=== PATIENT | female | born 1995 | race Caucasian/White ===

== ENCOUNTER 2021-02-07 15:46 | Emergency (ER) | payer BC, SELFPAY ==
--- NOTE | ~2021-02-07 | XR_ITS ---
XR ankle RT min 3V 02/07/2021 16:56 INDICATION: Right ankle pain PROCEDURE: 4 views right ankle COMPARISON: No prior studies for comparison. FINDINGS: Fracture, dislocation or subluxation is not identified. The soft tissues appear within norm al limits. No foreign bodies are identified. IMPRESSION: 1: NO ACUTE BONE OR JOINT ABNORMALITY IDENTIFIED. Reviewed, dictated and finalized at location A.
--- NOTE | ~2021-02-07 | XR_ITS ---
XR knee RT min 4V 02/07/2021 16:56 INDICATION: Right knee pain. Unable to bear weight. PROCEDURE: 4 views right knee COMPARISON: No prior studies for comparison. FINDINGS: Fracture, dislocation or subluxation is not identified. No significant joint effusion. The soft tissues appear within normal limits. No foreign bodies are identified. IMPRESSION: 1: NO ACUTE BONE OR JOINT ABNORMALITY IDENTIFIED. Reviewed, dictated and finalized at location A.
[2021-02-07 16:03] VITALS: BP 155/99; PULSE 81; RESP 20; TEMP 37.6; O2SAT 100
[2021-02-07 16:35] VITALS: BP 155/99; PULSE 81; RESP 20; TEMP 37.6; O2SAT 100
--- NOTE | 2021-02-07 16:38 | ED.LOWEXIN ---
HPI - Extremity Injury (Lower) General Chief Complaint: Extremity Injury, Lower Stated Complaint: Possible injury to right Leg and Ankle from fall Time Seen by Provider: 02/07/21 16:28 Source: patient, RN notes reviewed and old records reviewed Mode of arrival: ambulatory Limitations: no limitations History of Present Illness HPI Narrative: 26 year old female who presents to [facility] care with injury to her right knee and right ankle from fall off of porch onto concrete surface yesterday. Patient also has abrasion to her left knee, area of tissue avulsion to medial aspect of distal right foot near big toe where she states she hit her right foot on corner of porch. Patient has pain to the medial and lateral aspect of her right ankle, and dorsal region of right foot. Patient states pain also to her right knee with weight bearing with no acute edema noted. Patient has bruising to tissue of inner right thigh near knee and mid inner thigh. Patient has mild swelling to her right ankle with most pain stated to medial aspect of her ankle. MD complaint: knee injury and ankle injury Onset (ago): day(s) (1) Injury: Right: ankle and Bilateral: knee (left has abrasion, right painful) Type of Injury: other (fall) Place: other (fell off of relatives porch) Severity: moderate Severity scale (1-10): 5 Relieving factors: nothing Exacerbating factors: weight bearing and movement Context: fall Associated symptoms: able to partially bear weight Treatments prior to arrival: NSAIDS Related Data Allergies Allergy/AdvReac Type Severity Reaction Status Date / Time No Known Allergies Allergy Verified 02/07/21 16:30 Review of Systems Review of Systems: Narrative: CONSTITUTIONAL: Denies fever, chills, or sweats. EYES: Denies visual changes, redness, or discharge. ENT: Denies rhinorrhea, congestion, sore throat, or otalgia. CARDIOVASCULAR: Denies chest pain, palpitations, or edema. RESPIRATORY: Denies cough or dyspnea. GASTROINTESTINAL: Denies abdominal pain, nausea, vomiting, or diarrhea. GENITOURINARY: Denies dysuria or hematuria. SKIN: Denies rash or itching.abrasion to left knee from fall, avulsion of tissue to medial right distal foot near big toe no active bleeding MUSCULOSKELETAL: Denies back pain,positive for right medial and lateral ankle pain and right knee pain from fall, or myalgia. NEUROLOGIC: Denies headache, numbness, or weakness. PSYCHIATRIC:Positive history of anxiety or depression. All systems reviewed & are unremarkable except as noted in HPI and below PMFSH Past Medical History Medical History (Updated 02/11/21 @ 12:28 by Verna Patel NP) Anxiety and depression Fracture of metatarsal bone UTI (urinary tract infection) Surgical History Surgical History (Updated 02/11/21 @ 12:23 by Verna Patel NP) History of placement of ear tubes Previous section Family History Family History (Updated 02/11/21 @ 12:27 by Verna Patel NP) Mother Anxiety and depression Father Brain tumor History of blood clots Other Acute myocardial infarction Breast cancer Diabetes mellitus FHx: Parkinson's disease Heart disease Social History Social History (Updated 02/11/21 @ 12:24 by Verna Patel NP) Smoking status: Never smoker Alcohol intake: current Alcohol use details: rare social Substance use: never Living arrangements: with family Gender identity (if verbalized by the patient): Female Comments At time of signature, agree with nursing past medical, surgical, social and family history. There is no relevant family history pertinent to the presenting complaint Exam Narrative: Exam Narrative: GENERAL: Well-appearing, well-nourished, and in no acute distress. HEAD: Normocephalic, atraumatic.no loss of consciousness or injury to head EYES: PERRLA and EOMI. ENT: Nares clear, no rhinorrhea or epistaxis. Mucous membranes moist.TM's normal with good light reflex, throat pink with no lesions o
== END 2021-02-07 17:52 | disposition home or self-care (01) ==
PROVIDERS: Emergency Provider Registered Nurse
DX: S93.401A Sprain of unspecified ligament of right ankle, initial encounter (principal); S96.911A Strain of unspecified muscle and tendon at ankle and foot level, right foot, initial encounter; S80.11XA Contusion of right lower leg, initial encounter; W17.89XA Other fall from one level to another, initial encounter
CPT/HCPCS: 73564; 73610; 99214; G0463

== ENCOUNTER 2022-10-06 08:08 | Outpatient (CLI) | payer OTHER, SELFPAY ==
[2022-10-06 09:04] LABS: Hematocrit 35.8 % (37.0-47.0); Hemoglobin 10.5 g/dL (12.0-15.0)
== END 2022-10-06 08:09 | disposition home or self-care (01) ==
PROVIDERS: Visit Provider Obstetrics & Gynecology
DX: N92.6 Irregular menstruation, unspecified (principal); Z01.818 Encounter for other preprocedural examination
CPT/HCPCS: 36415; 85014; 85018

== ENCOUNTER 2022-10-12 00:40 | Day surgery (SDC) | payer OTHER, SELFPAY ==
[2022-10-04 14:21] VITALS: BMI 53.3
--- NOTE | 2022-10-04 14:27 | SUR.PREOP ---
Report to the Outpatient Waiting Room, entrance under the green pavilion located off [facility], at time _1015 on date _10/12/22 . Planned Procedure Time: _1215 . Time changes happen often and if your time is changed the preop area will call you the afternoon before. - You and your visitor will be asked to self-screen and do not enter if you have any COVID symptoms. - Only one visitor is requested with a max of two and NO children visitors are allowed at this time. - The patient visitor may be requested to leave or wait in car when not with patient due to distancing restrictions. - A mask is optional within the hospital at this time. Patients may have clear liquids (water, carbonated beverages, clear teas, apple juice) until 3 hours prior to surgery with a maximum of 20 ounces. - No food from midnight until time of surgery - Infants may have breast milk until 4 hours before surgery, infant formula 6 hours prior to surgery. - Children will be allowed to drink immediately following surgery. If applicable, please bring a bottle or sippy cup to assist with drinking. Juice, water, soda, and popsicles are readily available. For infants on formula, please bring formula the day of surgery. Pacifiers are allowed. Take the following medications with a SIP of water the morning of surgery: _n/a DO NOT STOP ANY OF YOUR OTHER PRESCRIPTION MEDICATIONS PRIOR TO SURGERY ?EXCEPT THE FOLLOWING Medications to discontinue per physician _VITAMIN Date to take last dose__10/09/22 Please no make-up, nail vietnamese, hairspray, perfume, deodorant, or body powder the day of surgery. No jewelry (including any body piercings) or valuables the day of surgery, leave them at home. Please take a shower or bath the night before, or the morning of, surgery with an antibacterial soap. Wear comfortable, loose fitting clothing. Children are encouraged to wear pajamas. - Jewelry must be removed prior to entering the operating room. Rings and piercings that are not removed may be cut off. - The hospital will not accept responsibility for valuables. - Please leave all valuables, including medications, at home the day of surgery. If you are going home after surgery, a licensed tilt tray driver must drive you home. - NO public transportation without another adult if you receive anesthesia. - We recommend that an adult stay with you for 24 hours following discharge. - We also recommend that you do not drive, make important decision, drink alcoholic beverages, or take any drugs that were not prescribed by your health care provider for at least 24 hours after your discharge time. For Pediatric surgeries, we recommend two adults accompany the child home. Follow any additional instructions given to you from your surgeon. If you or anyone in your household have experienced Covid symptoms in the past week, please notify your surgeon or the nurse liaison at the phone number below for possible testing. Telephone instructions given to _JENNIFER RAMÍREZ and asked if any additional questions and then verbalized understanding. Patient advised to call surgeon office or pre surgery nurse liaison [phone] if any additional questions.
--- NOTE | 2022-10-10 12:05 | P.HP_ITS ---
H&P: HPI History of Present Illness Date/Time: 10/10/22 12:05 Chief Complaint: Vaginal bleeding Narrative: A 27-year-old female here for hysteroscopy dilatation curettage secondary to irregular bleeding. She had a baby 5 years ago couple periods were normal but has been irregular since she is admitted for diagnostic hysteroscopy and dilatation curettage. Risks and benefits have been reviewed PMFSH Past Medical History Medical History Anxiety and depression Fracture of metatarsal bone UTI (urinary tract infection) Surgical History Surgical History History of placement of ear tubes Previous section Family History Family History Mother Anxiety and depression Father Brain tumor History of blood clots Other Acute myocardial infarction Breast cancer Diabetes mellitus FHx: Parkinson's disease Heart disease Social History Social History Smoking status: Former smoker Tobacco type: cigarettes Smoking end date: 08/05/09 Additional smoking assessment comments: smoked for 1 year Alcohol intake: current Alcohol use details: rare social Substance use: never Living arrangements: with family Gender identity (if verbalized by the patient): Female Spiritual care concerns: No Meds Home Medications and Allergies Home Medications Medication Instructions Recorded Confirmed Type pren vit comb.1-iron cb-FA-DSS 90 1 tablet PO DAILY 10/04/22 10/04/22 History mg-1 mg-50 mg tablet Allergies Allergy/AdvReac Type Severity Reaction Status Date / Time naproxen Allergy Severe Swelling Verified 10/04/22 13:59 of Lip/Tongue/Throat Exam Const: General: cooperative, healthy appearing, comfortable and overweight Orientation/consciousness: oriented to person, oriented to place and oriented to time HENMT: Head: normal to inspection Chest: Chest palpation & inspection: normal inspection of the chest Resp: Effort & Inspection: normal respiratory effort Cardio: Rate: regular rate Rhythm: regular rhythm Heart sounds: S1 normal heart sound present and S2 normal heart sound present GI: Inspection: normal to inspection : Speculum Exam - Vagina: normal appearance of the vagina Speculum Exam - Cervix: normal appearance of the cervix Bimanual exam- vagina & uterus: ut erine size normal Bimanual Exam- Adnexa, other: normal adnexae Assessment and Plan Assessment and plan (1) Vaginal bleeding: Code(s): N93.9 - Abnormal uterine and vaginal bleeding, unspecified Status: Acute Plan Hysteroscopy/dilatation and curettage
--- NOTE | 2022-10-12 07:13 | WPDHPUPDATE1 ---
History and Physical Update Update Date/Time: 10/12/22 07:13 History and Physical has been reviewed, including an updated exam of the patient. There are NO changes in the patient's condition. Risks, benefits, and alternatives have been discussed and questions answered. Patient agrees to proceed with procedure.
[2022-10-12 09:10] VITALS: BP 154/109; PULSE 89; RESP 16; TEMP 36.7; O2SAT 100
[2022-10-12] MEDS: ACETAMINOPHEN 500 MG TABLET 1000 MG PO (09:31)
[2022-10-12] MEDS: LACTATED RINGERS 1,000 ML 30 ML IV CONT (09:33)
[2022-10-12 10:17] VITALS: BP 135/74; PULSE 78
--- NOTE | 2022-10-12 10:32 | WPDANESEPPF ---
Anes - Initial Pre Proc Eval Procedure: Operation Date: 10/12/22 11:15 Proposed Procedures p Hysteroscopy Dilation and Curettage - Ankit Rios MD Date/Time: 10/12/22 10:32 Surgeon: Ankit Rios MD Pre Op Diagnosis: Irg Bleeding Patient Data Age: 27 Gender: F Height: 1.74 m Weight: 159.6 kg Last Vital Signs Temp 98.1 F 10/12/22 09:10 Pulse 78 10/12/22 10:17 Resp 16 10/12/22 09:10 BP 135/74 10/12/22 10:17 Pulse Ox 100 10/12/22 09:10 O2 Del Method Room Air 10/12/22 09:10 Allergies Allergy/AdvReac Type Severity Reaction Status Date / Time naproxen Allergy Severe Swelling Verified 10/12/22 09:58 of Lip/Tongue/Throat Home Medications Medication Instructions Recorded Confirmed Type pren vit comb.1-iron cb-FA-DSS 90 1 tablet PO DAILY 10/04/22 10/12/22 History mg-1 mg-50 mg tablet hydrocodone 5 mg-acetaminophen 325 1 tablet PO Q4H PRN pain #20 tabs 10/12/22 Rx mg tablet Patient hx anesthesia problems: none Family hx anesthesia problems: none Results Review: All pre-operative results and documents have been reviewed as part of the pre-operative evaluation. FOR[facility]LY [facility] Past Medical History Medical History Anxiety and depression Fracture of metatarsal bone UTI (urinary tract infection) Surgical History Surgical History History of placement of ear tubes Previous section Family History Family History Mother Anxiety and depression Father Brain tumor History of blood clots Other Acute myocardial infarction Breast cancer Diabetes mellitus FHx: Parkinson's disease Heart disease Social History Social History Smoking status: Former smoker Tobacco type: cigarettes Smoking end date: 08/05/09 Additional smoking assessment comments: smoked for 1 year Alcohol intake: current Alcohol use details: rare social Substance use: never Living arrangements: with family Gender identity (if verbalized by the patient): Female Spiritual care concerns: No Anes - Eval Final PreProcedure Day of Procedure 10/12/22 10:32 Patient weight: super morbidly obese Heart: regular rate and rhythm Lungs: clear to auscultation Airway: Mallampati scale class III Neurological: alert and oriented Last oral intake: >/= 8 hours ASA classification: III Emergent: no Anesthetic plan: proceed Anesthesia type and monitoring: general GIVS (may use LMA) and standard monitoring Results Review: All pre-operative results and documents have been reviewed as part of the pre-operative evaluation. Informed Consent: The patient's anesthetic plan and its attendant risks and benefits were discussed with the patient/family/POA. Questions were solicited and answers provided to the satisfaction of the patient/family/POA.
[2022-10-12] MEDS: LIDOCAINE HCL 1% LOCAL INJ 10 ML VIAL INFILTRATE (11:00)
[2022-10-12 11:08] VITALS: BP 136/83; PULSE 76; RESP 16; O2SAT 99
--- NOTE | 2022-10-12 11:08 | W.PM.PROC2 ---
Procedure Note - Detailed Date of Procedure 10/12/22 Pre-op Diagnosis Irg Bleeding Post-op Diagnosis Same Procedure Performed Hysteroscopy / dilatation curettage Surgeon Ankit Rios MD Anesthesia MAC and Local Indications 27-year-old female with irregular bleeding Findings thickened irregular endometrial tissue. Normal-appearing ostia bilaterally. Description of Procedure Patient was prepped draped in the normal sterile fashion placed in dorsal lithotomy position. Under excellent IV sedation weighted speculum placed in posterior fornix vagina. Anterior lip of the cervix grasped with single-tooth tenaculum. 2.5cc% xylocaine anesthesia placed at 2, 4, 8, 10:00 a.m. of the cervix. Uterus sounded to7.5cm. Serial dilatation with fragmented dilators performed followed by passage of the 5mm visualizing hysteroscope. Normal saline was used as visualizing medium. Thick irregular endometrial tissue was seen but no evidence of polyp or other abnormality. Each fallopian tube ostia could be seen and abnormality seen the instrument with was was withdrawn and the patient underwent curettage with sharp discs curettage. When a good grating sound was heard no further tissue was removed. The instruments were then withdrawn the patient was awakened. Blood loss estimated 5cc. All sponge, needle, instrument counts were correct. There were no immediate complications Estimated Blood Loss 5 Drains No Packing No Pathology Yes Complications No immediate complications Condition Stable Disposition PACU
[2022-10-12] MEDS: fentaNYL CITRATE INJ (*CRX) 100 MCG/2 ML VIAL 25 MCG IV PUSH ×2 (11:25→11:28)
[2022-10-12 11:35] VITALS: BP 148/98; PULSE 71
[2022-10-12] MEDS: ONDANSETRON INJ 4 MG/2 ML VIAL IV PUSH (11:35)
[2022-10-12 12:05] VITALS: BP 143/98; PULSE 72
== END 2022-10-12 12:12 | disposition home or self-care (01) ==
PROVIDERS: Visit Provider Obstetrics & Gynecology
PROC: 0U5B8ZZ Destruction of Endometrium, Via Natural or Artificial Opening Endoscopic (ICD-10-PCS; CPT 58563; principal; 2022-10-12 11:15)
DX: N93.9 Abnormal uterine and vaginal bleeding, unspecified (principal); Z87.891 Personal history of nicotine dependence
CPT/HCPCS: 58558; 88305; A9270; J2250; J2405; J2704; J3010; J7030; J7120

== ENCOUNTER 2022-12-26 07:16 | Emergency (ER) | payer OTHER, SELFPAY ==
--- NOTE | ~2022-12-26 | US_ITS ---
EXAMINATION: US OB transvaginal DATE: 12/26/2022 09:59 INDICATION: Redundancy. Cramping. Hematuria. TECHNIQUE: Real-time transvaginal obstetric ultrasound. FINDINGS: No prior studies for comparison. The uterus measures 9.8 x 6.1 x 5.5 cm. There is an intrauterine gestational sac measuring 0.87 cm co rresponding to 5 week 5 day gestation. No definitive pole or yolk sac. No heart motions. Right ovary is normal. Left ovary contains a 1.6 cm corpus luteal cyst. IMPRESSION: 1. Intrauterine gestational sac corresponding to 5 week 5 day gestation (JUAN 08/23/2023). No ascencion e or yolk sac are definitely identified. Recommend follow-up with serial quantitative beta-hCG levels and ultrasound as clinically indicated. Reviewed, dictated and finalized at location B. IMPRESSION: 1. Intrauterine gestational sac corresponding to 5 week 5 day gestation (JUAN ). No pole or yolk sac are definitely identified. Recommend follow -up with serial quantitative beta-hCG levels and ultrasound as clinically indic ated.
[2022-12-26 07:21] VITALS: BP 161/91; PULSE 93; RESP 18; TEMP 36.8; O2SAT 100
[2022-12-26 08:08] LABS: Basophils Percent Auto 0.4 % (0.2-1.2); Eosinophils Absolute Auto 0.1 K/mm3 (0-0.3); Eosinophils Percent Auto 1.1 % (0-4.4); Hematocrit 34.1 % (37.0-47.0); Hemoglobin 10.2 g/dL (12.0-15.0); Immature Granulocyte Absolute 0.01 K/mm3 (0.00-0.031); Immature Granulocyte Percent A 0.2 % (0-0.5); Lymphocytes Absolute Auto 1.16 K/mm3 (0.9-3.2); Lymphocytes Percent Auto 21.8 % (18.3-44.2); Mean Corpuscular HGB Conc 29.9 g/dl (32-36); Mean Corpuscular Hemoglobin 22.1 pg (26-34); Mean Corpuscular Volume 73.8 fl (80-100); Mean Platelet Volume 10.2 fl (7.4-10.4); Monocytes Absolute Auto 0.5 K/mm3 (0.1-0.6); Monocytes Percent Auto 10.1 % (2.6-8.5); Neutrophils Absolute Auto 3.5 K/mm3 (1.3-6.7); Neutrophils Percent Auto 66.4 % (45.5-73.1); Platelet Count Result 217 k/mm3 (150-375); Red Blood Count 4.62 M/mm3 (4.2-5.4); Red Cell Distribution Width 17.9 % (11.5-14.5); White Blood Count 5.3 K/mm3 (4.5-10.0)
[2022-12-26 08:33] LABS: Platelet Estimate Adequate (Adequate)
[2022-12-26 08:35] LABS: Anisocytosis 1+ (NORMAL); Hypochromasia 1+ (NORMAL); Schistocytes None Seen (NORMAL)
--- NOTE | 2022-12-26 09:16 | ED.GENADULT ---
HPI - General Adult General Chief complaint: Vaginal Bleeding Stated complaint: 5w6d, vag bleed Time Seen by Provider: 12/26/22 08:14 History of Present Illness HPI narrative: 27-year-old female presented to the emergency department for evaluation of vaginal bleeding. Patient states the suspect she is approximately 5 weeks and 6 days . Patient stated on the through 16 that she was having some bleeding when she wiped. Patient states she did have some mild abdominal cramping yesterday. Patient denies any associated nausea vomiting or diarrhea. Patient states that she has had increased urinary frequency. Patient is scheduled to have follow-up with Dr. Sonido Rios Related Data Home Medications Medication Instructions Recorded Confirmed pren vit comb.1-iron cb-FA-DSS 90 1 tablet PO DAILY 10/04/22 10/12/22 mg-1 mg-50 mg tablet Allergies Allergy/AdvReac Type Severity Reaction Status Date / Time naproxen Allergy Severe Swelling Verified 10/12/22 09:58 of Lip/Tongue/Throat Review of Systems Review of Systems: All systems reviewed & are unremarkable except as noted in HPI and below PMFSH Past Medical History Medical History Anxiety and depression Fracture of metatarsal bone UTI (urinary tract infection) Surgical History Surgical History History of placement of ear tubes Previous section Family History Family History Mother Anxiety and depression Father Brain tumor History of blood clots Other Acute myocardial infarction Breast cancer Diabetes mellitus FHx: Parkinson's disease Heart disease Social History Social History Smoking status: Former smoker Tobacco type: cigarettes Smoking end date: 08/05/09 Additional smoking assessment comments: smoked for 1 year Alcohol intake: current Alcohol use details: rare social Substance use: never Living arrangements: with family Gender identity (if verbalized by the patient): Female Spiritual care concerns: No Exam Narrative: APPEARANCE: Well appearing, no pain, no distress, well-nourished. HEAD: normocephalic, atraumatic. EYES: PERRLA/EOMI, conjunctivae clear. NOSE: Normal no drainage EARS:TMS clear with good light reflex. THROAT: Pharynx clear, no exudate. NECK: Supple. No adenopathy, no masses. RESPIRATORY: Airway patent, respirations nonlabored. Clear to auscultation bilaterally, no rales, rhonchi, wheezing. CARDIOVASCULAR: Regular rate and rhythm without murmurs rubs or gallops. ABDOMINAL: Soft, nontender, nondistended, normal bowel sounds Pelvic exam: No active vaginal bleeding MUSCULOSKELETAL: Moves all extremities. Strength/ROM intact, No edema, No calf tenderness. NEURO: Alert. Cranial nerves II through XII intact. Good gait. Good coordination SKIN: Warm, dry. Normal Color PSYCHIATRIC: Normal affect/mood. Course Course Emergency Course: 27-year-old female presented the ED for evaluation of possible vaginal bleeding. Patient states when she wipes she does notice some blood on the toilet paper. On pelvic exam patient had no vaginal bleeding. UA does show evidence of urinary tract infection with hematuria. Patient was started on antibiotics in the emergency department and will be discharged home with Keflex. Patient does have follow-up scheduled with Dr. Sonido iRos already. Patient's beta hCG was 7049. Bedside ultrasound did show an intrauterine gestational sac corresponding to 5 weeks and 5 days. No pole or yolk sac are identified. This could be due to the early stage of her . Patient was updated the results of the work-up, treatment plan and was encouraged to follow-up with her DATA CONSULTANT. All questions concerns were addressed. Patient
[2022-12-26 09:47] LABS: Appearance Urine Cloudy (Clear); Bilirubin Urine Negative (Negative); Blood Urine 1+ (Negative); Color Urine Yellow (Yellow); Glucose Urine UA Negative (Negative); Ketones Urine Negative (Negative); Leukocyte Esterase Ur 3+ LEU/UL (Negative); Nitrate Urine Negative (Negative); Protein Urine Negative (Negative); Specific Grav Ur 1.006 (1.001-1.035); Urobilinogen Urine 0.2 mg/dL (<2.0); pH Urine 6.5 (5.0-9.0)
[2022-12-26 10:04] LABS: Add Urine Microscopic? YES
[2022-12-26 10:06] LABS: Non Pathogenic Casts RARE
[2022-12-26 10:14] LABS: RBC Urine 0-2 /hpf (0-2); WBC Clumps Urine Present /hpf; WBC Urine 21-30 /hpf (0-3)
[2022-12-26 10:15] LABS: Bacteria Urine 1+ /hpf; Squamous Epithelial Cell Urine Moderate /hpf (Few)
[2022-12-26] MEDS: CEPHALEXIN 500 MG CAPSULE PO (11:00)
== END 2022-12-26 11:00 | disposition home or self-care (01) ==
PROVIDERS: Emergency Provider Emergency Medicine; PCP Obstetrics & Gynecology
DX: O23.41 Unspecified infection of urinary tract in pregnancy, first trimester (principal); N39.0 Urinary tract infection, site not specified; R31.9 Hematuria, unspecified; Z3A.01 Less than 8 weeks gestation of pregnancy; Z87.891 Personal history of nicotine dependence
CPT/HCPCS: 36415; 76817; 81001; 84702; 85025; 85461; 86850; 86900; 86901; 87086; 99284; A9270

== ENCOUNTER 2023-01-25 19:58 | Emergency (ER) | payer OTHER, SELFPAY ==
[2023-01-25] VITALS (12 sets, daily range): BP systolic 140–151; BP diastolic 80–115; PULSE 91–142; RESP 15–20; TEMP 36.4–36.9; O2SAT 97–100
--- NOTE | ~2023-01-25 | US_ITS ---
EXAMINATION: US OB <= 14 weeks fetus INDICATION: Bright red vaginal bleeding 10 wk . TECHNIQUE: Sonography of the pelvis was performed by transabdominal techniques. COMPARISON: 12/26/2022. RESULT: Uterus: Orientation: Anteverted. Old 0.6 x 7.1 x 8.7 cm. Myometrium: homogeneous echogenicity. The c ervix measures 3.3 cm and appears to be closed. Intrauterine gestational sac: Single present. Yolk s ac: 0.64 cm . Embryo: Single present. [place] rump length: 3.17 cm, corresponding gestational age 10 weeks, 0 days. Gestational heart rate: present 173 bpm. Subgestational hematoma: Absent . Right ovary: 3.2 x 2.8 x 1.9 cm. Normal sonographic appearance with physiologic follicles. . Vascu lar flow is present. Left ovary: Not visualized. Pelvis free fluid: None. IMPRESSION: Single, live intrauterine gestation. Estimated Gestational Age: 10 weeks, 0 days by crown rump length. JUAN by ultrasound 08/23/2023. Reviewed, dictated and finalized at location K. IMPRESSION: Single, live intrauterine gestation. Estimated Gestational Age: 10 weeks, 0 days by crown rump length. JUAN by ultra sound 08/23/2023.
[2023-01-25 21:23] LABS: Basophils Percent Auto 0.2 % (0.2-1.2); Eosinophils Absolute Auto 0.1 K/mm3 (0-0.3); Eosinophils Percent Auto 0.9 % (0-4.4); Hematocrit 33.3 % (37.0-47.0); Hemoglobin 10.1 g/dL (12.0-15.0); Immature Granulocyte Absolute 0.01 K/mm3 (0.00-0.031); Immature Granulocyte Percent A 0.2 % (0-0.5); Lymphocytes Absolute Auto 1.41 K/mm3 (0.9-3.2); Mean Corpuscular HGB Conc 30.3 g/dl (32-36); Mean Corpuscular Hemoglobin 22.4 pg (26-34); Mean Corpuscular Volume 73.8 fl (80-100); Mean Platelet Volume 10.9 fl (7.4-10.4); Monocytes Absolute Auto 0.7 K/mm3 (0.1-0.6); Monocytes Percent Auto 11.1 % (2.6-8.5); Neutrophils Absolute Auto 3.7 K/mm3 (1.3-6.7); Neutrophils Percent Auto 63.6 % (45.5-73.1); Platelet Count Result 212 k/mm3 (150-375); Red Blood Count 4.51 M/mm3 (4.2-5.4); Red Cell Distribution Width 17.3 % (11.5-14.5); White Blood Count 5.9 K/mm3 (4.5-10.0)
[2023-01-25 21:26] LABS: Appearance Urine Cloudy (Clear); Bacteria Urine 1+ /hpf; Bilirubin Urine Negative (Negative); Blood Urine 3+ (Negative); Color Urine Yellow (Yellow); Glucose Urine UA Negative (Negative); Ketones Urine Negative (Negative); Leukocyte Esterase Ur Negative LEU/UL (Negative); Nitrate Urine Negative (Negative); Non Pathogenic Casts 0-2; Protein Urine Trace mg/dL (Negative); RBC Urine 21-50 /hpf (0-2); Specific Grav Ur 1.024 (1.001-1.035); Squamous Epithelial Cell Urine Moderate /hpf (Few); Urobilinogen Urine 0.2 mg/dL (<2.0); WBC Urine 0-5 /hpf; pH Urine 6.5 (5.0-9.0)
[2023-01-25 21:28] LABS: Add Urine Microscopic? YES
[2023-01-25 21:35] LABS: Alanine Aminotransferase 31 U/L (6-35); Albumin Level 3.8 g/dL (3.5-5.1); Alkaline Phosphatase 46 U/L (38-126); Anion Gap 5 mmol/L (8-16); Aspartate Amino Transferase 26 U/L (14-36); Bilirubin,Total 0.2 mg/dL (0.2-1.3); Blood Urea Nitrogen 15 mg/dL (7-17); Calcium 8.8 mg/dL (8.4-10.2); Carbon Dioxide 23 mmol/L (22-30); Chloride 106 mmol/L (98-107); Estimated CRCL calculation 182 ml/min; Estimated Glomerular Filt Rate > 60; Glucose 103 mg/dL (65-110); Potassium 3.9 mmol/L (3.4-5.0); Sodium 134 mmol/L (137-145)
--- NOTE | 2023-01-25 21:37 | ED.FEMALEGU ---
HPI - Female Genitourinary General Chief complaint: Vaginal Bleeding Stated complaint: -bleeding Time Seen by Provider: 01/25/23 20:53 History of Present Illness HPI Narrative: Patient is a 27-year-old G2, P1 female who is currently about 10 weeks here for evaluation of bright red vaginal bleeding x1 day. Patient likens her bleeding to a menstrual cycle, has not yet saturated through her menstrual pad. No blood clots. She has no abdominal pain, lightheadedness, fevers, chills, dysuria. no sexual activity recently. Related Data Home Medications Medication Instructions Recorded Confirmed pren vit comb.1-iron cb-FA-DSS 90 1 tablet PO DAILY 10/04/22 10/12/22 mg-1 mg-50 mg tablet Allergies Allergy/AdvReac Type Severity Reaction Status Date / Time naproxen Allergy Severe Swelling Verified 01/25/23 20:26 of Lip/Tongue/Throat Review of Systems Review of Systems: Gen: Denies fevers or chills Eyes: Denies eye pain or visual change ENT: Denies congestion Respiratory: Denies shortness of breath or cough CV: Denies chest pain or palpitations GI: Denies abdominal pain nausea, emesis or diarrhea : Reports vaginal bleeding. Denies burning, urgency, frequency or hematuria Musculoskeletal: Denies back pain or muscle pain Neuro: Denies numbness, tingling, weakness or focal weakness Skin: Denies rash Except as documented, all other systems reviewed and negative [facility] Past Medical History Medical History Anxiety and depression Fracture of metatarsal bone UTI (urinary tract infection) Surgical History Surgical History History of placement of ear tubes Previous section Family History Family History Mother Anxiety and depression Father Brain tumor History of blood clots Other Acute myocardial infarction Breast cancer Diabetes mellitus FHx: Parkinson's disease Heart disease Social History Social History Smoking status: Former smoker Tobacco type: cigarettes Smoking end date: 08/05/09 Additional smoking assessment comments: smoked for 1 year Alcohol intake: current Alcohol use details: rare social Substance use: never Living arrangements: with family Gender identity (if verbalized by the patient): Female Spiritual care concerns: No Exam Narrative: APPEARANCE: Anxious appearing. Head: Normocephalic and atraumatic. EYES: PERRLA/EOMI, conjunctivae clear NOSE: No nasal drainage EARS: External ear normal in appearance THROAT: Oropharynx is clear. Mucous membranes are moist. NECK: Supple. No adenopathy, no masses. RESPIRATORY: Airway patent, respirations nonlabored. Clear to auscultation bilaterally, no rales, rhonchi, wheezing. CARDIOVASCULAR: Regular rate and rhythm without murmurs, rubs, or gallops. : technically difficult 2/2 extra tissue, cervix not completely visualized, small amount of bright red blood in the vaginal vault with no blood clots ABDOMINAL: Normoactive bowel sounds. Soft, nontender, nondistended. No rebound tenderness or guarding. MUSCULOSKELETAL: Extremities are warm and well-perfused. Moves all extremities well. No edema. NEURO: Normal speech. No focal neurologic deficits. SKIN: Skin is warm and dry. No rashes. PSYCHIATRIC: Normal affect/mood. Course Vital Signs Vital signs: Vital Signs Temperature 98.5 F 01/25/23 20:21 Pulse Rate 142 H 01/25/23 20:21 Respiratory Rate 20 01/25/23 20:21 Blood Pressure 141/115 H 01/25/23 20:21 Pulse Oximetry 98 01/25/23 20:21 Oxygen Delivery Room Air 01/25/23 20:21 Temperature 97.6 F 01/25/23 23:30 Pulse Rate 91 01/25/23 23:30 Respiratory Rate 16 01/25/23 23:30 Blood Pressure 151/87 H 01/25/23 23:30 Pulse
[2023-01-25 21:39] LABS: Anisocytosis 1+ (NORMAL); Hypochromasia 1+ (NORMAL); Platelet Estimate Adequate (Adequate)
[2023-01-25 21:40] LABS: Ovalocytes 1+ (NORMAL); Schistocytes None Seen (NORMAL)
== END 2023-01-25 23:32 | disposition home or self-care (01) ==
PROVIDERS: Emergency Provider Physician Assistant; PCP Obstetrics & Gynecology
DX: O20.9 Hemorrhage in early pregnancy, unspecified (principal); Z3A.10 10 weeks gestation of pregnancy
CPT/HCPCS: 36415; 76801; 80053; 81001; 84702; 85025; 85461; 86850; 86900; 86901; 99284

== ENCOUNTER 2023-07-15 16:22 | Outpatient (CLI) | payer OTHER, SELFPAY ==
[2023-07-15 17:00] VITALS: BP 139/86; PULSE 63
[2023-07-15 17:13] LABS: Basophils Percent Auto 0.3 % (0.2-1.2); Eosinophils Absolute Auto 0.1 K/mm3 (0-0.3); Hematocrit 33.2 % (37.0-47.0); Hemoglobin 10.2 g/dL (12.0-15.0); Immature Granulocyte Absolute 0.02 K/mm3 (0.00-0.031); Immature Granulocyte Percent A 0.3 % (0-0.5); Lymphocytes Absolute Auto 1.42 K/mm3 (0.9-3.2); Lymphocytes Percent Auto 19.4 % (18.3-44.2); Mean Corpuscular HGB Conc 30.7 g/dl (32-36); Mean Corpuscular Hemoglobin 25.2 pg (26-34); Mean Platelet Volume 11.1 fl (7.4-10.4); Monocytes Absolute Auto 0.7 K/mm3 (0.1-0.6); Monocytes Percent Auto 9.8 % (2.6-8.5); Neutrophils Absolute Auto 5.1 K/mm3 (1.3-6.7); Neutrophils Percent Auto 69.2 % (45.5-73.1); Platelet Count Result 185 k/mm3 (150-375); Red Blood Count 4.05 M/mm3 (4.2-5.4); Red Cell Distribution Width 15.5 % (11.5-14.5); White Blood Count 7.3 K/mm3 (4.5-10.0)
[2023-07-15 17:16] VITALS: BP 139/88; PULSE 62
[2023-07-15 17:24] LABS: Alanine Aminotransferase 19 U/L (6-35); Albumin Level 3.4 g/dL (3.5-5.1); Alkaline Phosphatase 110 U/L (38-126); Anion Gap 5 mmol/L (8-16); Aspartate Amino Transferase 22 U/L (14-36); Bilirubin,Total 0.2 mg/dL (0.2-1.3); Blood Urea Nitrogen 14 mg/dL (7-17); Calcium 8.7 mg/dL (8.4-10.2); Carbon Dioxide 25 mmol/L (22-30); Chloride 103 mmol/L (98-107); Estimated Glomerular Filt Rate > 60; Glucose 89 mg/dL (65-110); Potassium 4.4 mmol/L (3.4-5.0); Sodium 133 mmol/L (137-145); Uric Acid 5.2 mg/dL (2.5-7.5)
[2023-07-15 17:31] VITALS: BP 140/87; PULSE 62
--- NOTE | 2023-07-15 17:40 | PC.NURSE ---
Dr Trujillo informed of lab results and BP's and reactive tracing. Ok to dc home.
[2023-07-15 17:45] VITALS: BP 139/86; PULSE 64
== END 2023-07-15 17:45 | disposition home or self-care (01) ==
LOC: ANHOBOP 16:43 → ANHLDR 16:44
PROVIDERS: PCP Obstetrics & Gynecology; Visit Provider Obstetrics & Gynecology
DX: O13.9 Gestational [pregnancy-induced] hypertension without significant proteinuria, unspecified trimester (principal); Z3A.00 Weeks of gestation of pregnancy not specified
CPT/HCPCS: 36415; 59025; 80053; 84550; 85025; 99199

== ENCOUNTER 2023-07-18 10:10 | Outpatient (CLI) | payer OTHER, SELFPAY ==
[2023-07-18] VITALS (7 sets, daily range): BP systolic 124–149; BP diastolic 77–90; PULSE 65–80; BMI 56.6
[2023-07-18 10:56] LABS: Basophils Percent Auto 0.1 % (0.2-1.2); Eosinophils Absolute Auto 0.1 K/mm3 (0-0.3); Eosinophils Percent Auto 0.8 % (0-4.4); Hematocrit 32.6 % (37.0-47.0); Hemoglobin 10.1 g/dL (12.0-15.0); Immature Granulocyte Absolute 0.02 K/mm3 (0.00-0.031); Immature Granulocyte Percent A 0.3 % (0-0.5); Lymphocytes Absolute Auto 1.21 K/mm3 (0.9-3.2); Mean Corpuscular Hemoglobin 25.4 pg (26-34); Mean Corpuscular Volume 81.9 fl (80-100); Mean Platelet Volume 11.3 fl (7.4-10.4); Monocytes Absolute Auto 0.6 K/mm3 (0.1-0.6); Monocytes Percent Auto 8.1 % (2.6-8.5); Neutrophils Absolute Auto 5.6 K/mm3 (1.3-6.7); Neutrophils Percent Auto 74.7 % (45.5-73.1); Platelet Count Result 163 k/mm3 (150-375); Red Blood Count 3.98 M/mm3 (4.2-5.4); Red Cell Distribution Width 15.4 % (11.5-14.5); White Blood Count 7.5 K/mm3 (4.5-10.0)
[2023-07-18 11:09] LABS: Alanine Aminotransferase 16 U/L (6-35); Albumin Level 3.2 g/dL (3.5-5.1); Alkaline Phosphatase 99 U/L (38-126); Anion Gap 3 mmol/L (8-16); Aspartate Amino Transferase 20 U/L (14-36); Bilirubin,Total 0.2 mg/dL (0.2-1.3); Blood Urea Nitrogen 15 mg/dL (7-17); Calcium 8.8 mg/dL (8.4-10.2); Carbon Dioxide 25 mmol/L (22-30); Chloride 106 mmol/L (98-107); Estimated CRCL calculation 172 ml/min; Estimated Glomerular Filt Rate > 60; Glucose 89 mg/dL (65-110); Potassium 4.6 mmol/L (3.4-5.0); Sodium 134 mmol/L (137-145); Uric Acid 5.6 mg/dL (2.5-7.5)
[2023-07-18 11:42] LABS: Appearance Urine Clear (Clear); Bacteria Urine Rare /hpf; Bilirubin Urine Negative (Negative); Blood Urine Negative (Negative); Color Urine Yellow (Yellow); Glucose Urine UA Negative (Negative); Ketones Urine Negative (Negative); Leukocyte Esterase Ur 1+ LEU/UL (NEGATIVE); Nitrate Urine Negative (Negative); Non Pathogenic Casts 0-2; Protein Urine Negative (Negative); RBC Urine 0-2 /hpf (0-2); Specific Grav Ur 1.019 (1.001-1.035); Squamous Epithelial Cell Urine Many /hpf (Few); Urobilinogen Urine 0.2 mg/dL (<2.0); pH Urine 6.5 (5.0-9.0)
[2023-07-18 11:47] LABS: Add Urine Microscopic? YES
[2023-07-18 11:48] LABS: Creatinine Urine 91.3 mg/dL; Total Protein Urine Random 8 mg/dL; Ur Ttl Prot Creatinine Ratio 0.09 mg/mg (0-0.20)
--- NOTE | 2023-07-18 12:14 | PC.NURSE ---
1202--Report to Dr. Trujillo re: NST, v.s., pt's reports of high BP's last night, physical assessment, and lab results. Orders to DC home with education to pt. re: JONN and appointments.
== END 2023-07-18 12:10 | disposition home or self-care (01) ==
LOC: ANHOBOP 10:19 → ANHOBPP 10:19
PROVIDERS: PCP Obstetrics & Gynecology; Visit Provider Obstetrics & Gynecology
DX: O26.899 Other specified pregnancy related conditions, unspecified trimester (principal); R03.0 Elevated blood-pressure reading, without diagnosis of hypertension
CPT/HCPCS: 36415; 59025; 80053; 81001; 82570; 84156; 84550; 85025; 87086; 87088; 99199

== ENCOUNTER 2023-07-30 08:27 | Outpatient (CLI) | payer OTHER, SELFPAY ==
[2023-07-30 08:49] VITALS: BP 125/74; PULSE 87
[2023-07-30 08:50] VITALS: BP 125/74; PULSE 92; BMI 57.8
[2023-07-30 09:01] VITALS: BP 129/74; PULSE 91
[2023-07-30 09:13] LABS: Basophils Percent Auto 0.1 % (0.2-1.2); Eosinophils Absolute Auto 0.1 K/mm3 (0-0.3); Eosinophils Percent Auto 1.1 % (0-4.4); Hematocrit 31.9 % (37.0-47.0); Hemoglobin 10.2 g/dL (12.0-15.0); Immature Granulocyte Absolute 0.03 K/mm3 (0.00-0.031); Immature Granulocyte Percent A 0.4 % (0-0.5); Lymphocytes Absolute Auto 1.24 K/mm3 (0.9-3.2); Lymphocytes Percent Auto 17.3 % (18.3-44.2); Mean Corpuscular Volume 81.4 fl (80-100); Mean Platelet Volume 11.4 fl (7.4-10.4); Monocytes Absolute Auto 0.6 K/mm3 (0.1-0.6); Neutrophils Absolute Auto 5.2 K/mm3 (1.3-6.7); Neutrophils Percent Auto 73.1 % (45.5-73.1); Platelet Count Result 176 k/mm3 (150-375); Red Blood Count 3.92 M/mm3 (4.2-5.4); Red Cell Distribution Width 15.4 % (11.5-14.5); White Blood Count 7.2 K/mm3 (4.5-10.0)
[2023-07-30 09:16] VITALS: BP 125/76; PULSE 80
[2023-07-30 09:26] LABS: Alanine Aminotransferase 17 U/L (6-35); Albumin Level 3.2 g/dL (3.5-5.1); Alkaline Phosphatase 102 U/L (38-126); Anion Gap 9 mmol/L (8-16); Aspartate Amino Transferase 20 U/L (14-36); Bilirubin,Total 0.2 mg/dL (0.2-1.3); Blood Urea Nitrogen 14 mg/dL (7-17); Calcium 8.7 mg/dL (8.4-10.2); Carbon Dioxide 18 mmol/L (22-30); Chloride 108 mmol/L (98-107); Estimated CRCL calculation 175 ml/min; Estimated Glomerular Filt Rate > 60; Glucose 109 mg/dL (65-110); Potassium 3.8 mmol/L (3.4-5.0); Sodium 135 mmol/L (137-145); Uric Acid 5.9 mg/dL (2.5-7.5)
[2023-07-30 09:31] VITALS: BP 126/77; PULSE 80
[2023-07-30 09:34] VITALS: BP 126/77; PULSE 80
[2023-07-30] MEDS: BETAMETHASONE SOD PHOS/ACETATE 30 MG/5 ML VIAL 12 MG IM (09:35)
[2023-07-30 09:53] LABS: Appearance Urine Cloudy (Clear); Bacteria Urine 1+ /hpf; Bilirubin Urine Negative (Negative); Blood Urine Negative (Negative); Color Urine Yellow (Yellow); Creatinine Urine 226.2 mg/dL; Glucose Urine UA Negative (Negative); Ketones Urine Trace mg/dL (Negative); Leukocyte Esterase Ur 1+ LEU/UL (Negative); Nitrate Urine Negative (Negative); Non Pathogenic Casts 0-2; Protein Urine Trace mg/dL (Negative); RBC Urine 0-2 /hpf (0-2); Specific Grav Ur 1.031 (1.001-1.035); Squamous Epithelial Cell Urine Moderate /hpf (Few); Total Protein Urine Random 9 mg/dL; Ur Ttl Prot Creatinine Ratio 0.04 mg/mg (0-0.20)
[2023-07-30 10:30] LABS: Add Urine Microscopic? YES
--- NOTE | 2023-07-30 10:30 | PC.NURSE ---
Dr. Sonido Rios informed of BP's and lab results. NST reactive. Order received for discharge. Pt to come back tomorrow for and Saturday for NST and BP check. C/S remains scheduled for 08/16/23 at this time.
--- NOTE | 2023-07-30 12:22 | PM.OBTRLD ---
OB - Triage/Final Diagnosis Visit Information Date of evaluation: 07/30/23 Reason for evaluation: other (hypertension) Comments/Additional reasons for admission: I have assessed the risk for this patient, Bindu Beal, and determined that she would benefit from observation care. Evaluation Laboratory results: Laboratory Tests 07/30/23 08:53 WBC 7.2 RBC 3.92 L Hgb 10.2 L Hct 31.9 L MCV 81.4 MCH 26.0 MCHC 32.0 RDW 15.4 H Plt Count 176 MPV 11.4 H Immature Gran % (Auto) 0.4 Neut % (Auto) 73.1 Lymph % (Auto) 17.3 L [place] % (Auto) 8.0 Eos % (Auto) 1.1 Baso % (Auto) 0.1 L Lymph # (Auto) 1.24 [place] # (Auto) 0.6 Eos # (Auto) 0.1 Baso # (Auto) 0.0 Abs Immat Gran (auto) 0.03 Absolute Neuts (auto) 5.2 Absolute Nucleated RBC 0.0 Nucleated RBC % 0.0 Sodium 135 L Potassium 3.8 Chloride 108 H Carbon Dioxide 18 L Anion Gap 9 BUN 14 Creatinine 0.70 Estim Creat Clear Calc 175 Estimated GFR > 60 Glucose 109 Uric Acid 5.9 Calcium 8.7 Total Bilirubin 0.2 AST 20 ALT 17 Alkaline Phosphatase 102 Total Protein 6.0 L Albumin 3.2 L Urine Color Yellow Urine Appearance Cloudy H Urine pH 6.0 Ur Specific [place] 1.031 Urine Protein Trace Urine Glucose (UA) Negative Urine Ketones Trace H Ur Blood (Man) Negative Urine Nitrate Negative Urine Bilirubin Negative Urine Urobilinogen 1.0 Leukocyte Esterase Rfl 1+ H Urine RBC 0-2 Urine WBC 11-20 H Ur Squamous Epith Cells Moderate Urine Bacteria 1+ H Urine Casts 0-2 U Random Total Protein 9 Urine Creatinine 226.2 Protein/Creat Ratio 2 0.04 Vital signs: Vital Signs - 24 hr 07/30/23 08:49 07/30/23 09:01 07/30/23 09:16 Pulse Rate 87 91 80 Blood Pressure 125/74 129/74 125/76 Blood Pressure [Left Arm] 07/30/23 09:31 07/30/23 08:50 07/30/23 09:34 Pulse Rate 80 92 80 Blood Pressure 126/77 Blood Pressure [Left Arm] 125/74 126/77 07/30/23 09:01 Pulse Rate 91 Blood Pressure 129/74 Blood Pressure [Left Arm]
== END 2023-07-30 10:38 | disposition home or self-care (01) ==
LOC: ANHOBOP 08:32 → ANHOBPP 08:35
PROVIDERS: Visit Provider Obstetrics & Gynecology
DX: O13.9 Gestational [pregnancy-induced] hypertension without significant proteinuria, unspecified trimester (principal); Z3A.00 Weeks of gestation of pregnancy not specified
CPT/HCPCS: 36415; 59025; 80053; 81001; 82570; 84156; 84550; 85025; 87086; 87088; 96372; 99199; J0702

== ENCOUNTER 2023-07-31 10:03 | Outpatient (CLI) | payer OTHER, SELFPAY ==
[2023-07-31] MEDS: BETAMETHASONE SOD PHOS/ACETATE 30 MG/5 ML VIAL 12 MG IM (10:37)
== END 2023-07-31 10:41 | disposition home or self-care (01) ==
LOC: ANHOBOP 10:31 → ANHLDR 10:31
PROVIDERS: Visit Provider Obstetrics & Gynecology
DX: O35.8XX0 Maternal care for other (suspected) fetal abnormality and damage, not applicable or unspecified (principal); Z3A.00 Weeks of gestation of pregnancy not specified
CPT/HCPCS: 96372; 99199; J0702

== ENCOUNTER 2023-08-09 11:24 | Outpatient (RCR) | payer OTHER, SELFPAY ==
[2023-07-20 12:36] VITALS: BP 100/65; PULSE 79
[2023-07-27 12:31] VITALS: BP 121/80; PULSE 94
[2023-08-02 12:23] VITALS: BP 106/64; PULSE 97
--- NOTE | 2023-08-02 12:31 | PM.OBTRLD ---
OB - Triage/Final Diagnosis Visit Information Date of evaluation: 08/02/23 Reason for evaluation: other (gestational htn) Comments/Additional reasons for admission: I have assessed the risk for this patient, Bindu Beal, and determined that she would benefit from observation care.
[2023-08-06 15:29] VITALS: BP 115/73; PULSE 89
--- NOTE | ~2023-08-09 | US_ITS ---
EXAMINATION: US OB BPP wo non-stress DATE: 08/09/2023 13:08 INDICATION: Nonreassuring biophysical profile TECHNIQUE: Real-time pelvic ultrasound was performed. The interpreting radiologist was not present fo r the study. COMPARISON: None. FINDINGS: There is a single living fetus in vertex presentation. The placenta is anterior. heart rate is 135 beats per minute (bpm). Amniotic fluid volume is subjectively normal. Biophysical profile performed by the technologist: breathing (30 sec sustained breathing in 30 minutes): 2 out of 2 movement (3 gross body movements in 30 minutes): 2 out of 2 tone (one episode of efsltlm-koxyhfsdf-oibbeli limb movement): 2 out of 2 Amniotic fluid pocket (2 cm): 2 out of 2 Total score: 8 out of 8 IMPRESSION: 1. Single living fetus in vertex presentation with heart rate of 135 bpm. 2. Biophysical profile 8 out of 8. Reviewed, dictated and finalized at location A. ER MACHINE OPERATOR
--- NOTE | 2023-08-09 06:57 | P.HP_ITS ---
H&P: HPI History of Present Illness Date/Time: 08/09/23 06:57 Chief Complaint: term /chronic hypertension / previous section Narrative: a 28-year-old multiparous patient with previous section and elevated blood pressures. Blood pressures been worsening. She has had good growth and testing with negative PIH labs. Her blood pressures were removing crease 0 she is admitted for delivery a slightly early. [facility] Past Medical History Medical History (Updated 08/09/23 @ 06:59 by Ankit Rios MD) Anxiety and depression Fracture of metatarsal bone UTI (urinary tract infection) Surgical History Surgical History (Updated 08/09/23 @ 06:59 by Ankit Rios MD) History of placement of ear tubes Previous section Family History Family History Mother Anxiety and depression Father Brain tumor History of blood clots Other Acute myocardial infarction Breast cancer Diabetes mellitus FHx: Parkinson's disease Heart disease Social History Social History Smoking status: Former smoker Tobacco type: cigarettes Smoking end date: 08/05/09 Additional smoking assessment comments: smoked for 1 year Alcohol intake: current Alcohol use details: rare social Substance use: never Living arrangements: with family Gender identity (if verbalized by the patient): Female Spiritual care concerns: No Meds Home Medications and Allergies Home Medications Medication Instructions Recorded Confirmed Type pren vit comb.1-iron cb-FA-DSS 90 1 tablet PO DAILY 10/04/22 08/02/23 History mg-1 mg-50 mg tablet labetalol 200 mg tablet 200 mg PO TID 07/18/23 08/02/23 History Allergies Allergy/AdvReac Type Severity Reaction Status Date / Time naproxen Allergy Severe Swelling Verified 07/27/23 12:09 of Lip/Tongue/Throat Exam Const: General: cooperative, healthy appearing and comfortable Orientation/consciousness: oriented to person, oriented to place and oriented to time HENMT: Head: normal to inspection Chest: Chest palpation & inspection: normal inspection of the chest Resp: Effort & Inspection: normal respiratory effort Cardio: Rate: regular rate Rhythm: regular rhythm Heart sounds: S1 normal heart sound present and S2 normal heart sound present GI: Inspection: normal to inspection ( Gravid soft uterus) Assessment and Plan Assessment and plan (1) Term : Code(s): Z34.90 - Encounter for supervision of normal , unspecified, unspecified trimester Status: Acute (2) Gestational hypertension: Code(s): O13.9 - Gestational [-induced] hypertension without significant proteinuria, unspecified trimester Status: Acute Plan repeat low-transverse section
[2023-08-09 13:18] VITALS: BP 128/76; PULSE 81
== END 2023-10-18 23:59 | disposition home or self-care (01) ==
LOC: ANHOBOP 11:24
PROVIDERS: PCP Obstetrics & Gynecology; Visit Provider Obstetrics & Gynecology
DX: O26.893 Other specified pregnancy related conditions, third trimester (principal); R03.0 Elevated blood-pressure reading, without diagnosis of hypertension; Z3A.35 35 weeks gestation of pregnancy; Z3A.36 36 weeks gestation of pregnancy; Z3A.37 37 weeks gestation of pregnancy; Z3A.38 38 weeks gestation of pregnancy
CPT/HCPCS: 59025; 76819

== ENCOUNTER 2023-08-10 10:41 | Outpatient (CLI) | payer OTHER, SELFPAY ==
[2023-08-10 11:12] LABS: Hematocrit 34.8 % (37.0-47.0); Hemoglobin 10.7 g/dL (12.0-15.0); Mean Corpuscular HGB Conc 30.7 g/dl (32-36); Mean Corpuscular Hemoglobin 25.3 pg (26-34); Mean Corpuscular Volume 82.3 fl (80-100); Mean Platelet Volume 11.2 fl (7.4-10.4); Platelet Count Result 196 k/mm3 (150-375); Red Blood Count 4.23 M/mm3 (4.2-5.4); Red Cell Distribution Width 15.5 % (11.5-14.5); White Blood Count 8.1 K/mm3 (4.5-10.0)
[2023-08-12 15:49] LABS: Rapid Plasma Reagin Non-Reactive (NonReactive)
== END 2023-08-10 10:42 | disposition home or self-care (01) ==
LOC: ANHLAB 10:43
PROVIDERS: Visit Provider Obstetrics & Gynecology
DX: Z34.93 Encounter for supervision of normal pregnancy, unspecified, third trimester (principal); Z3A.00 Weeks of gestation of pregnancy not specified
CPT/HCPCS: 36415; 85027; 86592; 86850; 86900; 86901

== ENCOUNTER 2023-08-12 05:34 | Inpatient (IN) | payer OTHER, SELFPAY ==
--- NOTE | 2023-08-09 06:59 | HP_ITS ---
This report was moved to the correct visit on 08/15/2023. The original report was signed by Ankit Wilburn MD on 08/09/23 0659. H&P: HPI History of Present Illness Date/Time: 08/09/23 06:57 Chief Complaint: term /chronic hypertension / previous section Narrative: a 28-year-old multiparous patient with previous section and elevated blood pressures. Blood pressures been worsening. She has had good growth and testing with negative PIH labs. Her blood pressures were removing crease 0 she is admitted for delivery a slightly early. [facility] Past Medical History Medical History (Updated 08/09/23 @ 06:59 by Ankit Rios MD) Anxiety and depression Fracture of metatarsal bone UTI (urinary tract infection) Surgical History Surgical History (Updated 08/09/23 @ 06:59 by Ankit Rios MD) History of placement of ear tubes Previous section Family History Family History Mother Anxiety and depression Father Brain tumor History of blood clots Other Acute myocardial infarction Breast cancer Diabetes mellitus FHx: Parkinson's disease Heart disease Social History Social History Smoking status: Former smoker Tobacco type: cigarettes Smoking end date: 08/05/09 Additional smoking assessment comments: smoked for 1 year Alcohol intake: current Alcohol use details: rare social Substance use: never Living arrangements: with family Gender identity (if verbalized by the patient): Female Spiritual care concerns: No Meds Home Medications and Allergies Home Medications Medication Instructions Recorded Confirmed Type pren vit comb.1-iron cb-FA-DSS 90 1 tablet PO DAILY 10/04/22 08/02/23 History mg-1 mg-50 mg tablet labetalol 200 mg tablet 200 mg PO TID 07/18/23 08/02/23 History Allergies Allergy/AdvReac Type Severity Reaction Status Date / Time naproxen Allergy Severe Swelling Verified 07/27/23 12:09 of Lip/Tongue/Throat Exam Const: General: cooperative, healthy appearing and comfortable Orientation/consciousness: oriented to person, oriented to place and oriented to time HENMT: Head: normal to inspection Chest: Chest palpation & inspection: normal inspection of the chest Resp: Effort & Inspection: normal respiratory effort Cardio: Rate: regular rate Rhythm: regular rhythm Heart sounds: S1 normal heart sound present and S2 normal heart sound present GI: Inspection: normal to inspection ( Gravid soft uterus) Assessment and Plan Assessment and plan (1) Term : Code(s): Z34.90 - Encounter for supervision of normal , unspecified, unspecified trimester Status: Acute (2) Gestational hypertension: Code(s): O13.9 - Gestational [-induced] hypertension without significant proteinuria, unspecified trimester Status: Acute Plan repeat low-transverse section This report may have been done utilizing a voice recognition system. Attempts have been made to correct errors. However, there may be uncorrected grammatical, spelling, and recognition errors present. Report Initialized date/time: Ankit Wilburn MD 08/09/2359 Electronically signed by: Ankit Wilburn MD 08/09/23 0659 [facility]
[2023-08-12] VITALS (62 sets, daily range): BP systolic 93–166; BP diastolic 37–148; PULSE 59–108; RESP 12–18; TEMP 36.2–36.7; O2SAT 96–100; BMI 56.6
[2023-08-12] MEDS: LACTATED RINGERS 1,000 ML 125 ML IV CONT ×2 (06:10→07:01)
--- NOTE | 2023-08-12 06:22 | LDADM ---
This patient, Bindu Beal, was admitted to Labor/Delivery/Recovery 120 on 08/12/23 at 05:34. Plans for , pain management and were discussed with patient. Patient/family oriented to hospital policies and general routines including ID bracelet, bed and alarms, visiting hours, pain management, procedures, bathroom and other care routines, personal items, smoking policy, room service/diet and guest tray routines, security routines, and visiting hours. Patient/Family are encouraged to report perceived risks to care and to ask questions if they do not understand what they are told or what they should do. See OBIX for further documentation.
--- NOTE | 2023-08-12 06:48 | WPDHPUPDATE1 ---
History and Physical Update Update Date/Time: 08/12/23 06:48 History and Physical has been reviewed, including an updated exam of the patient. There are NO changes in the patient's condition. Risks, benefits, and alternatives have been discussed and questions answered. Patient agrees to proceed with procedure.
--- NOTE | 2023-08-12 06:59 | WPDANESEPPF ---
Anes - Initial Pre Proc Eval Procedure: Operation Date: 08/12/23 07:30 Proposed Procedures p Repeat Section - Ankit Rios MD Date/Time: 08/12/23 06:59 Surgeon: Ankit Rios MD Pre Op Diagnosis: C/S Patient Data Age: 28 Gender: F Height: 1.73 m Weight: 169 kg Last Vital Signs Pulse 71 08/12/23 06:46 BP 146/97 H 08/12/23 06:46 O2 Del Method Room Air 08/12/23 06:14 Allergies Allergy/AdvReac Type Severity Reaction Status Date / Time naproxen Allergy Severe Swelling Verified 07/27/23 12:09 of Lip/Tongue/Throat Home Medications Medication Instructions Recorded Confirmed Type pren vit comb.1-iron cb-FA-DSS 90 1 tablet PO DAILY 10/04/22 08/12/23 History mg-1 mg-50 mg tablet labetalol 200 mg tablet 200 mg PO TID 07/18/23 08/12/23 History hydrocodone 5 mg-acetaminophen 325 1 tablet PO Q4H PRN pain #30 tabs 08/12/23 Rx mg tablet Patient hx anesthesia problems: none Family hx anesthesia problems: none Results Review: All pre-operative results and documents have been reviewed as part of the pre-operative evaluation. [facility] Past Medical History Medical History Anxiety and depression Fracture of metatarsal bone UTI (urinary tract infection) Surgical History Surgical History History of placement of ear tubes Previous section Family History Family History Mother Anxiety and depression Father Brain tumor History of blood clots Other Acute myocardial infarction Breast cancer Diabetes mellitus FHx: Parkinson's disease Heart disease Social History Social History Smoking status: Former smoker Tobacco type: cigarettes Smoking end date: 08/05/15 Additional smoking assessment comments: smoked for 1 year Alcohol intake: current Alcohol use details: rare social Substance use: never Do You Feel Safe in your Home?: Yes Lack of Transportation: No Lack of Food: Never True Current Housing: I Have Housing Concerned About Future Housing: No Difficulty Paying Gas/Electric Bills: No Difficulty Paying for Meds: No Currently Unemployed: No Education: Trade/Vocational Certificate Difficulty w/ Childcare or Family Care: No Living arrangements: with family Gender identity (if verbalized by the patient): Female Spiritual care concerns: No Anes - Eval Final PreProcedure Day of Procedure 08/12/23 06:59 Patient weight: super morbidly obese Heart: regular rate and rhythm Lungs: clear to auscultation Airway: Mallampati scale class II Neurological: alert and oriented Last oral intake: >/= 8 hours ASA classification: III Emergent: no Anesthetic plan: proceed Anesthesia type and monitoring: regional spinal and standard monitoring Results Review: All pre-operative results and documents have been reviewed as part of the pre-operative evaluation. Informed Consent: The patient's anesthetic plan and its attendant risks and benefits were discussed with the patient/family/POA. Questions were solicited and answers provided to the satisfaction of the patient/family/POA.
[2023-08-12] MEDS: ceFAZolin 3 GM/D5W 100 ML 100 ML IVPB (07:14)
[2023-08-12] MEDS: KETOROLAC 30 MG/ML VIAL (*BKC) IV PUSH (08:08)
--- NOTE | 2023-08-12 08:27 | W.PM.OBCSD ---
OB - Delivery Note Procedure Delivery date: 08/12/23 Pre-op diagnosis: Previous Delivery Post-op Diagnosis: Same Induction method: None Procedure Performed: Repeat Surgeon: Ankit Rios MD Anesthesia type: Spinal Description of Procedure/Findings: Patient was prepped draped in the normal sterile fashion placed in the supine position. Under excellent spinal anesthetic the abdomen was entered through the previous Pfannenstiel incision progressive layers of fascia. Fascia incised midline carried upward outward fashion bilaterally. Underlying muscles sharply dissected. Parietal peritoneum 0 by Eliza clamps and by sharp dissection carried superiorly and inferiorly dome of the bladder. Bladder flap formed. Bladder blade returned. Low-transverse incision made the head delivered in the NORMA position. Anterior posterior shoulder delivered spontaneously. Cord clamped and cut and the passed off the table with excellent cry. Placenta delivered intact manually uterus delivering the abdomen wrapped in moist towel. After assuring no membranes or debris remained in the uterus, the uterus was closed with continuous running locking 0 Vicryl from lateral edge lateral edge. This followed by 2nd imbricating running locking 0 Vicryl from lateral edge lateral edge. Hemostasis was assured. Ovaries and tubes appeared within normal limits and the uterus returned to the abdomen. The hysterotomy incision inspected 1 last time noted be intact. Laps removed and accounted for. The fascia closed with continuous running 0 Vicryl from lateral edge to lateral edge. Incision closed with 4 Monocryl glue all sponge, needle, instrument counts were correct. There were no immediate complications Specimen: No Estimated Blood Loss: 435 Drains: No Packing: No Pathology: None sent Complications: No immediate complications Condition: Stable Disposition: Floor [place] Baby Date of : 08/12/23 Time of : 08:08 Weeks of gestation at delivery: 38 Weight (pounds): 6 Weight (ounces): 11 presentation: vertex position: Right Occiput Anterior Placenta delivery description: Spontaneous Cord Vessel Description: 3 Vessels score one minute: 8 score five minutes: 9
[2023-08-12] MEDS: MORPHINE SULFATE INJ (*CRX) 10 MG/ML AMP 3 MG IV PUSH (10:14)
[2023-08-12] MEDS: LIDOCAINE 5% PATCH 1 PATCH TRANSDERM (10:34)
--- NOTE | 2023-08-12 11:43 | OBPPTRN ---
1105-Patient transferred to post room #291 via stretcher. Support person present. Oriented to unit, room, information board, rooming in, admission packet and security measures. Patient verbalizes understanding.
[2023-08-12] MEDS: DOCUSATE SODIUM 100 MG CAPSULE PO (14:53)
[2023-08-12] MEDS: MULTIVIT/MIN/PREN/FOL AC/IRON TABLET 1 TAB PO (14:53)
[2023-08-12] MEDS: LABETALOL HCL 100 MG TABLET 200 MG PO ×2 (14:54→20:14)
[2023-08-12] MEDS: DEXTROSE 5%/0.45% SOD CHL 1,000 ML 125 ML IV CONT (14:54)
[2023-08-12] MEDS: SIMETHICONE 80 MG TAB.CHEW PO (14:57)
[2023-08-12] MEDS: IBUPROFEN 600 MG TABLET PO (17:00)
[2023-08-12] MEDS: HYDROcodone/acetaminophen (*CRX) 5-325 MG TABLET 1 TAB PO (17:00)
[2023-08-12] MEDS: KCL 20 MEQ/D5/0.45% SOD CHL 1,000 ML 125 ML IV CONT (22:36)
[2023-08-13] MEDS: HYDROcodone/acetaminophen (*CRX) 5-325 MG TABLET 1 TAB PO ×5 (01:11→22:27)
[2023-08-13] MEDS: SIMETHICONE 80 MG TAB.CHEW PO ×3 (01:11→11:32)
[2023-08-13] MEDS: IBUPROFEN 600 MG TABLET PO ×4 (01:11→22:27)
[2023-08-13 05:39] LABS: Basophils Percent Auto 0.1 % (0.2-1.2); Eosinophils Percent Auto 0.4 % (0-4.4); Hematocrit 29.7 % (37.0-47.0); Hemoglobin 8.9 g/dL (12.0-15.0); Immature Granulocyte Absolute 0.04 K/mm3 (0.00-0.031); Immature Granulocyte Percent A 0.4 % (0-0.5); Lymphocytes Absolute Auto 1.41 K/mm3 (0.9-3.2); Lymphocytes Percent Auto 14.9 % (18.3-44.2); Mean Corpuscular Hemoglobin 25.4 pg (26-34); Mean Corpuscular Volume 84.9 fl (80-100); Mean Platelet Volume 11.7 fl (7.4-10.4); Monocytes Absolute Auto 0.9 K/mm3 (0.1-0.6); Monocytes Percent Auto 9.6 % (2.6-8.5); Neutrophils Absolute Auto 7.1 K/mm3 (1.3-6.7); Neutrophils Percent Auto 74.6 % (45.5-73.1); Platelet Count Result 145 k/mm3 (150-375); Red Cell Distribution Width 15.7 % (11.5-14.5); White Blood Count 9.5 K/mm3 (4.5-10.0)
--- NOTE | 2023-08-13 07:30 | WPDANLDPN2 ---
Anes-Prog Note L&D Date/Time: 08/13/23 07:30 Comfortable throughout: section Neuraxial method: spinal Epidural/Spinal procedure site: clean & non-tender Neuro status: Neuro function grossly intact. Cardiovascular status: normal Respiratory status: normal Airway patency: baseline Mental status: baseline Post-Op hydration status: normal Vital Signs: Last Vital Signs Temp 36.2 C L 08/12/23 23:20 Pulse 74 08/12/23 23:20 Resp 18 08/12/23 23:20 BP 123/73 08/12/23 23:20 Pulse Ox 99 08/12/23 23:20 O2 Del Method Room Air 08/12/23 11:45 Pain score (VAS): 2/10 I/O: Intake & Output 08/12/23 08/12/23 08/13/23 15:59 23:59 07:59 Intake Total 1113 1750 Output Total 140 885 9081 Balance -788 863 -740 Post-procedural complaints: none Patient feedback: Patient satisfied with anesthetic care.
--- NOTE | 2023-08-13 07:30 | WPDANLDNPN2 ---
Anes-Prog Note L&D-Neuraxial Date/Time: 08/13/23 07:30 Neuraxial medications: intrathecal PF morphine Opiod-related complaints: none Patient feedback: Patient satisfied with post-operative pain management.
--- NOTE | 2023-08-13 07:43 | PM.DS ---
DS: Admitting Diagnosis Discharge Date 08/14/2023 Admitting Diagnosis Term /gestational hypertension DS: Discharge Diagnosis Discharge Diagnosis (1) Previous section: Code(s): Z98.891 - History of uterine scar from previous surgery Status: Acute (2) Gestational hypertension: Code(s): O13.9 - Gestational [-induced] hypertension without significant proteinuria, unspecified trimester Status: Acute (3) Term : Code(s): Z34.90 - Encounter for supervision of normal , unspecified, unspecified trimester Status: Acute DS: Summary Hospital Course Reason for hospitalization: patient was admitted for repeat section secondary to previous section and gestational hypertension Hospital Course: patient underwent an unremarkable repeat section on 08/12/2023 . Her hospital course unremarkable. She remained afebrile. She was up, voiding without difficulty, eating regular diet, ambulating, generally without complaints. Time Spent with Patient Time attestation: Total time spent providing and/or coordinating discharge services: Exam Const: General: cooperative, healthy appearing and comfortable Nutritional Appearance: obese Orientation/consciousness: oriented to person, oriented to place and oriented to time Resp: Effort & Inspection: normal respiratory effort Cardio: Rate: regular rate Rhythm: regular rhythm Heart sounds: S1 normal heart sound present and S2 normal heart sound present GI: Inspection: normal to inspection and incision ( Wound is clean dry and intact) DS: Data Data Completed and Pending Labs on day of discharge: Labs from last 24 hours 08/13/23 03:55 WBC 9.5 RBC 3.50 L Hgb 8.9 L Hct 29.7 L MCV 84.9 MCH 25.4 L MCHC 30.0 L RDW 15.7 H Plt Count 145 L MPV 11.7 H Immature Gran % (Auto) 0.4 Neut % (Auto) 74.6 H Lymph % (Auto) 14.9 L [place] % (Auto) 9.6 H Eos % (Auto) 0.4 Baso % (Auto) 0.1 L Lymph # (Auto) 1.41 [place] # (Auto) 0.9 H Eos # (Auto) 0.0 Baso # (Auto) 0.0 Abs Immat Gran (auto) 0.04 H Absolute Neuts (auto) 7.1 H Absolute Nucleated RBC 0.0 Nucleated RBC % 0.0 Discharge Plan Discharge Attending physician on discharge: Ankit Wilburn Discharging Clinician: Ankit Wilburn Patient Disposition: Home, Self-Care Activity: may shower, no straining, may drive after 2 weeks and pelvic rest Diet: heart healthy Wound Care Instructions: follow printed instructions Patient Instructions: Antibiotic Form Stand Alone Forms: General Discharge Information Follow-up/Referrals: Ankit Wilburn MD [Physician] - Discharge Medications: New hydrocodone-acetaminophen 5-325 mg tablet 1 tablet PO Q4H PRN (Reason: pain) Qty: 30 0RF hydrocodone-acetaminophen 5-325 mg tablet 1 tablet PO Q4H PRN (Reason: pain) Qty: 30 0RF Continued pren vit comb.1-iron cb-FA-DSS 90-1-50 mg Tablet 1 tablet PO DAILY labetalol 200 mg Tablet 200 mg PO TID Date of admission: 08/12/23 05:34 Primary Care Provider: PHYSICIAN,G[employer]ER Admitting Provider: Ankit Wilburn Attending physician on admission: Ankit Wilburn Condition: Stable
[2023-08-13 07:45] VITALS: BP 131/76; PULSE 94; RESP 16; TEMP 36.6; O2SAT 99
[2023-08-13 08:37] VITALS: PULSE 94
[2023-08-13] MEDS: POLYSACCHARIDE IRON COMPLEX 150 MG CAPSULE PO ×2 (08:37→16:46)
[2023-08-13] MEDS: DOCUSATE SODIUM 100 MG CAPSULE PO ×2 (08:37→16:45)
[2023-08-13] MEDS: LABETALOL HCL 100 MG TABLET 200 MG PO ×2 (08:37→16:46)
[2023-08-13] MEDS: MULTIVIT/MIN/PREN/FOL AC/IRON TABLET 1 TAB PO (08:38)
[2023-08-13] MEDS: LIDOCAINE 5% PATCH 1 PATCH TRANSDERM (08:40)
[2023-08-13] MEDS: HYDROcodone/acetaminophen (*CRX) 10-325 MG TABLET 1 TAB PO (11:31)
[2023-08-13 12:51] VITALS: BP 132/82; PULSE 83; RESP 16; TEMP 36.6; O2SAT 99
--- NOTE | 2023-08-13 12:56 | PC.NURSE ---
Report received this A.M. that mother has decided to bottle feed her .
[2023-08-13 16:15] VITALS: BP 125/89; PULSE 94; RESP 20; TEMP 36.4; O2SAT 98
[2023-08-13 16:46] VITALS: PULSE 94
[2023-08-13 19:45] VITALS: BP 131/79; PULSE 88; RESP 18; TEMP 36.4; O2SAT 99
[2023-08-14 01:12] VITALS: BP 126/73; PULSE 88
[2023-08-14 01:13] VITALS: PULSE 88
[2023-08-14] MEDS: LABETALOL HCL 100 MG TABLET 200 MG PO ×2 (01:13→09:23)
[2023-08-14 04:30] VITALS: BP 144/95; PULSE 96
[2023-08-14] MEDS: HYDROcodone/acetaminophen (*CRX) 5-325 MG TABLET 1 TAB PO ×2 (05:04→08:47)
[2023-08-14] MEDS: IBUPROFEN 600 MG TABLET PO (05:04)
[2023-08-14 07:30] VITALS: BP 134/77; PULSE 91; RESP 18; TEMP 36.4; O2SAT 100
--- NOTE | 2023-08-14 07:46 | P.PNOB_ITS ---
OB - PN: Subj Subjective Date/time seen: 08/14/23 07:46 Patient comments: no complaints and pain well controlled baby status: doing well OB - PN: Obj Data Labs 08/13/23 03:55 OB - PN A/P Plan day: 2 Plan: routine care, discharge home and follow up 6 weeks (4) Time Spent With Patient Time: Total time spent is greater than 50% in coordination of care (as documented) at patient's floor/unit and/or counseling patient: Time with patient: less than 15 minutes Exam Const: General: cooperative, healthy appearing and comfortable Orie ntation/consciousness: oriented to person, oriented to place and oriented to time HENMT: Head: normal to inspection Resp: Effort & Inspection: normal respiratory effort Cardio: Rate: regular rate Rhythm: regular rhythm Heart sounds: S1 normal heart sound present and S2 normal heart sound present GI: Inspection: normal to inspection and incision (cdi)
[2023-08-14] MEDS: POLYSACCHARIDE IRON COMPLEX 150 MG CAPSULE PO (08:46)
[2023-08-14] MEDS: LIDOCAINE 5% PATCH 1 PATCH TRANSDERM (08:47)
[2023-08-14] MEDS: SIMETHICONE 80 MG TAB.CHEW PO (08:49)
[2023-08-14] MEDS: MULTIVIT/MIN/PREN/FOL AC/IRON TABLET 1 TAB PO (08:51)
[2023-08-14] MEDS: DOCUSATE SODIUM 100 MG CAPSULE PO (08:51)
[2023-08-14 09:23] VITALS: PULSE 91
[2023-08-14] MEDS: MEASLES,MUMPS,RUBELLA VACCINE 0.5 ML VIAL SUB-Q (09:24)
[2023-08-14 12:15] VITALS: BP 131/82; PULSE 94; RESP 18; TEMP 36.6; O2SAT 100
[2023-08-15 10:15] VITALS: BP 147/90; PULSE 87; RESP 18; TEMP 36.8; O2SAT 97
== END 2023-08-14 12:11 | disposition home or self-care (01) | DRG 540 ==
LOC: ANHLDR 05:39 → ANHOB2 11:10
PROVIDERS: Admitting Provider Obstetrics & Gynecology; Visit Provider Obstetrics & Gynecology
PROC: 10D00Z1 Extraction of Products of Conception, Low, Open Approach (ICD-10-PCS; CPT 59514; principal; 2023-08-12 07:30)
DX: O34.219 Maternal care for unspecified type scar from previous cesarean delivery (principal); O13.4 Gestational [pregnancy-induced] hypertension without significant proteinuria, complicating childbirth; Z3A.38 38 weeks gestation of pregnancy; Z37.0 Single live birth; Z87.891 Personal history of nicotine dependence
CPT/HCPCS: 36415; 85025; 90710; A9270; J0690; J1885; J2270; J2274; J2371; J2405; J3480; J7120

== ENCOUNTER 2024-01-30 11:18 | Outpatient (CLI) | payer OTHER, SELFPAY ==
[2024-01-30 11:35] LABS: Basophils Percent Auto 0.3 % (0.2-1.2); Eosinophils Absolute Auto 0.1 K/mm3 (0-0.3); Eosinophils Percent Auto 1.3 % (0-4.4); Hematocrit 37.4 % (37.0-47.0); Hemoglobin 11.5 g/dL (12.0-15.0); Immature Granulocyte Absolute 0.02 K/mm3 (0.00-0.031); Immature Granulocyte Percent A 0.3 % (0-0.5); Lymphocytes Absolute Auto 1.39 K/mm3 (0.9-3.2); Lymphocytes Percent Auto 20.2 % (18.3-44.2); Mean Corpuscular HGB Conc 30.7 g/dl (32-36); Mean Corpuscular Hemoglobin 23.8 pg (26-34); Mean Corpuscular Volume 77.4 fl (80-100); Mean Platelet Volume 10.7 fl (7.4-10.4); Monocytes Absolute Auto 0.5 K/mm3 (0.1-0.6); Monocytes Percent Auto 6.5 % (2.6-8.5); Neutrophils Absolute Auto 4.9 K/mm3 (1.3-6.7); Neutrophils Percent Auto 71.4 % (45.5-73.1); Platelet Count Result 247 k/mm3 (150-375); Red Blood Count 4.83 M/mm3 (4.2-5.4); Red Cell Distribution Width 16.7 % (11.5-14.5); White Blood Count 6.9 K/mm3 (4.5-10.0)
== END 2024-01-30 11:19 | disposition home or self-care (01) ==
LOC: ANHSURGERY 11:22
PROVIDERS: Visit Provider Obstetrics & Gynecology
DX: Z01.818 Encounter for other preprocedural examination (principal); N81.4 Uterovaginal prolapse, unspecified
CPT/HCPCS: 36415; 85025; 86850; 86900; 86901

== ENCOUNTER 2024-02-07 00:33 | Day surgery (SDC) | payer OTHER, SELFPAY ==
[2024-01-29 09:39] VITALS: BMI 54.4
--- NOTE | 2024-01-29 10:12 | PC.NURSE ---
Report to the Outpatient Waiting Room, entrance under the green pavilion located off [facility], at 1130 on 02-07-24. Planned Procedure Time: 1330. Time changes happen often and if your time is changed the preop area will call you the afternoon before. - You and your visitor will be asked to self-screen and do not enter if you have any COVID symptoms. - A mask is optional within the hospital at this time. Patients may have clear liquids (water, carbonated beverages, clear teas, apple juice) until 3 hours prior to surgery with a maximum of 20 ounces. 1030 - No food from midnight until time of surgery - Infants may have breast milk until 4 hours before surgery, formula 6 hours prior to surgery. - Children will be allowed to drink immediately following surgery. If applicable, please bring a bottle or sippy cup to assist with drinking. Juice, water, soda, and popsicles are readily available. For infants on formula, please bring formula the day of surgery. Pacifiers are allowed. Take the following medications with a SIP of water the morning of surgery: None DO NOT STOP ANY OF YOUR OTHER PRESCRIPTION MEDICATIONS PRIOR TO SURGERY ?EXCEPT THE FOLLOWING Medications to discontinue per physician: N/A Please no make-up, nail divehi, hairspray, perfume, deodorant, or body powder the day of surgery. No jewelry (including any body piercings) or valuables the day of surgery, leave them at home. Please take a shower or bath the night before, or the morning of, surgery with an antibacterial soap. Wear comfortable, loose fitting clothing. Children are encouraged to wear pajamas. - Jewelry must be removed prior to entering the operating room. Rings and piercings that are not removed may be cut off. - The hospital will not accept responsibility for valuables. - Please leave all valuables, including medications, at home the day of surgery. If you are going home after surgery, a licensed m48/m60 tank driver must drive you home. - NO public transportation without another adult if you receive anesthesia. - We recommend that an adult stay with you for 24 hours following discharge. - We also recommend that you do not drive, make important decision, drink alcoholic beverages, or take any drugs that were not prescribed by your health care provider for at least 24 hours after your discharge time. For Pediatric surgeries, we recommend two adults accompany the child home. Follow any additional instructions given to you from your surgeon. If you or anyone in your household have experienced Covid symptoms in the past week, please notify your surgeon or the nurse liaison at the phone number below for possible testing. Telephone instructions given to Bindu Beal and asked if any additional questions and then verbalized understanding. Patient advised to call surgeon office or pre surgery nurse liaison [phone] if any additional questions.
--- NOTE | 2024-02-04 12:44 | PM.IMHP ---
H&P: HPI History of Present Illness Date/Time: 02/04/24 12:44 Chief Complaint: pelvic pain bleeding and uterine Narrative: 2 para 2 admitted for robotic total vaginal hysterectomy salpingectomy secondary to discomfort prolapse, she understands this to be procedure which will make her sterile. Risks benefits reviewed exclusive aspiration perforation bladder, ureters or other internal organs the need for she signed [facility] hysterectomy 8 knowledge min formed. She had all questions answered to satisfaction. She asked to proceed PMFSH Past Medical History Medical History Anxiety and depression Fracture of metatarsal bone UTI (urinary tract infection) Surgical History Surgical History History of placement of ear tubes Previous section Family History Family History Mother Anxiety and depression Father Brain tumor History of blood clots Other Acute myocardial infarction Breast cancer Diabetes mellitus FHx: Parkinson's disease Heart disease Social History Social History Years smoked: 1 Smoking status: Former smoker Tobacco type: cigarettes Second hand tobacco smoke exposure: No Smoking end date: 01/03/14 Additional smoking assessment comments: smoked for 1 year Alcohol intake: current Alcohol use details: very rarely Substance use: never Substance use type: does not use Do You Feel Safe in your Home?: Yes Lack of Transportation: No Lack of Food: Never True Current Housing: I Have Housing Concerned About Future Housing: No Difficulty Paying Gas/Electric Bills: No Difficulty Paying for Meds: No Currently Unemployed: No Education: Trade/Vocational Certificate Difficulty w/ Childcare or Family Care: No Living arrangements: with family Gender identity (if verbalized by the patient): Female Spiritual care concerns: No Meds Home Medications and Allergies Home Medications Medication Instructions Recorded Confirmed Type No Home Medications 01/29/24 01/29/24 History Allergies Allergy/AdvReac Type Severity Reaction Status Date / Time naproxen Allergy Severe Swelling Verified 01/29/24 09:36 of Lip/Tongue/Throat Exam Const: General: cooperative, comfortable and obese Orientation/consciousness: oriented to person, oriented to place and oriented to time HENMT: Head: normal to inspection Resp: Effort & Inspection: normal respiratory effort Cardio: Rate: regular rate Rhythm: regular rhythm Heart sounds: S1 normal heart sound present and S2 normal heart sound present GI: Inspection: normal to inspection and obesity : External Female Exam: normal external appearance Speculum Exam - Vagina: normal appearance of the vagina Speculum Exam - Cervix: normal appearance of the cervix Bimanual exam- vagina & uterus: Uterine tenderness Bimanual Exam- Adnexa, other: normal adnexae Assessment and Plan Assessment and plan (1) Previous section: Code(s): Z98.891 - History of uterine scar from previous surgery Status: Acute (2) Vaginal bleeding: Code(s): N93.9 - Abnormal uterine and vaginal bleeding, unspecified Status: Acute Assessment and Plan: robotic total vaginal hysterectomy with bilateral salpingectomy (3) Pelvic pain: Code(s): R10.2 - Pelvic and perineal pain Status: Acute
[2024-02-07] VITALS (8 sets, daily range): BP systolic 123–149; BP diastolic 68–90; PULSE 68–98; RESP 12–23; TEMP 36.6–37; O2SAT 95–100
--- NOTE | 2024-02-07 06:31 | WPDHPUPDATE1 ---
History and Physical Update Update Date/Time: 02/07/24 06:31 History and Physical has been reviewed, including an updated exam of the patient. There are NO changes in the patient's condition. Risks, benefits, and alternatives have been discussed and questions answered. Patient agrees to proceed with procedure.
--- NOTE | 2024-02-07 11:49 | P.PNAN_ITS ---
Anes - Initial Pre Proc Eval Procedure: Operation Date: 02/07/24 13:30 Proposed Procedures p Robotic Assisted Total Vaginal Hysterectomy with Bilateral Salpingectomy - Ankit Rios MD Date/Time: 02/07/24 11:49 Surgeon: Ankit Rios MD Pre Op Diagnosis: pelvic pain, uterine prolapse, irr. bleeding Patient Data Age: 29 Gender: F Height: 1.73 m Weight: 162.39 kg Allergies Allergy/AdvReac Type Severity Reaction Status Date / Time naproxen Allergy Severe Swelling Verified 01/29/24 09:36 of Lip/Tongue/Throat Home Medications Medication Instructions Recorded Confirmed Type hydrocodone 5 mg-acetaminophen 325 1 tablet PO Q4H PRN pain #30 tabs 02/07/24 Rx mg tablet Patient hx anesthesia problems: none Family hx anesthesia problems: none Results Review: All pre-operative results and documents have been reviewed as part of the pre- operative evaluation. [facility] Past Medical History Medical History (Updated 02/07/24 @ 11:49 by Ankit Zelaya MD) Anxiety and depression Fracture of metatarsal bone Morbid obesity UTI (urinary tract infection) Surgical History Surgical History History of placement of ear tubes Previous section Family History Family History Mother Anxiety and depression Father Brain tumor History of blood clots Other Acute myocardial infarction Breast cancer Diabetes mellitus FHx: Parkinson's disease Heart disease Social History Social History Years smoked: 1 Smoking status: Former smoker Tobacco type: cigarettes Second hand tobacco smoke exposure: No Smoking end date: 01/03/14 Additional smoking assessment comments: smoked for 1 year Alcohol intake: current Alcohol use details: very rarely Substance use: never Substance use type: does not use Do You Feel Safe in your Home?: Yes Lack of Transportation: No Lack of Food: Never True Current Housing: I Have Housing Concerned About Future Housing: No Difficulty Paying Gas/Electric Bills: No Difficulty Paying for Meds: No Currently Unemployed: No Education: Trade/Vocational Certificate Difficulty w/ Childcare or Family Care: No Living arrangements: with family Gender identity (if verbalized by the patient): Female Spiritual care concerns: No Anes - Eval Final PreProcedure Day of Procedure 02/07/24 11:49 Patient weight: super morbidly obese Heart: regular rate and rhythm Lungs: clear to auscultation Airway: Mallampati scale class II Neurological: alert and oriented Last oral intake: >/= 8 hours ASA classification: II Emergent: no Anesthetic plan: proceed Anesthesia type and monitoring: general ETT and standard monitoring Results Review: All pre-operative results and documents have been reviewed as part of the pre- operative evaluation. Informed Consent: The patient's anesthetic plan and its attendant risks and benefits were discussed with the patient/family/POA. Questions were solicited and answers provided to the satisfaction of the patient/family/POA.
[2024-02-07] MEDS: ceFAZolin 3 GM/D5W 100 ML 100 ML IVPB (12:27)
--- NOTE | 2024-02-07 14:19 | W.PM.PROC2 ---
Procedure Note - Detailed Date of Procedure 02/07/24 Pre-op Diagnosis pelvic pain, uterine prolapse, irr. bleeding Post-op Diagnosis Same Procedure Performed Robotic total vaginal hysterectomy bilateral salpingectomy extensive lysis of adhesions Surgeon Ankit Rios MD Anesthesia General Indications 20 old female status post tubal ligation is excessive heavy bleeding pain discomfort Findings enlarged uterus with multiple adhesions from the omentum to the anterior abdominal wall. Bladder was markedly adherent to the fundus of the uterus. The ovaries appeared within normal limits Description of Procedure patient prepped draped in the normal sterile fashion placed in the dorsal lithotomy position. Skin tracheal anesthesia placed posterior fornix. Anterior lip of the cervix grasped with single-tooth. Uterus sounded to 10cm. Serial dilatation with fragmented dilators performed followed by passage of the 10. HERMES and the 3. Cold cup. Next the 16 [place] catheter was placed bladder drained clear urine. The weighted speculum was removed removed with the single-tooth and the gloves were changed. A supraumbilical incision made the Veress needle passed in the abdomen. Abdomen filled with CO2 gas to 15 of. The 8mm trocar advanced in the abdomen. Downside visualized no injury seen. Patient placed in Trendelenburg and left and right lateral quadrant incisions made. 8Mm trocars advanced under direct visualization assuring no injury right upper quadrant incision made 8mm trocar advanced under direct visualization assuring no injury the robot was docked. Attention was turned to the director of group counseling program. Marked amount of adhesions were seen from the omentum to the anterior abdominal wall using sharp dissection with the electric cautery this was brought down. The the a the bladder was markedly adherent to the fundus of the uterus. Using sharp dissection this was layer by layer brought down until the uterine ligaments were noted. The left fallopian tube was grasped been was dissected away from the ovary and left attached to its origin at the uterus. This was repeated on the contralateral side to remove the right ovary. The round ligament was grasped anteriorly on the left clamped, burned, cut. Anteriorly a bladder flap was eventually able to be formed and the bladder brought down away from the uterine and cervical area. This was brought to the opposite round ligament which was clamped, burned, cut. Next the cardinal broad ligaments were skeletonized along the uterus on the left clamped, burned, cut and brought down to the level of the uterine vessels these were large and tortuous and individually clamped, burned, cut. In similar fashion on the right the cardinal broad ligaments were serially skeletonized clamping burning cutting and bring this down lateral edge of the uterus until the uterine vessels could be seen on the right. These were individually clamped, burned, cut. Jane the uterus was noted. A colpotomy incision was made the cervix uterus and tubes removed through the vagina. The vagina then closed with continuous running 0V lock from lateral edge to lateral edge back to the midline. Irrigation undertaken to clear and the raw surface area sprinkled with [place] term. Blood loss was estimated 200cc the robot was undocked. The gas removed from the abdomen after assuring the pedicles were dry. The trocars removed the incisions closed with 4-0 Monocryl and glue. The instruments removed from the vagina and the patient was awakened. She went to recovery in satisfactory condition. All sponge, needle, instrument counts were correct. There were no immediate complications Estimated Blood Loss 200 Drains No Packing No Pathology Yes Complications No immediate complications Condition Stable Disposition PACU
--- NOTE | 2024-02-07 14:24 | PM.DS ---
DS: Admitting Diagnosis Discharge Date 02/08/2024 Admitting Diagnosis enlarged uterus excessive heavy bleeding DS: Discharge Diagnosis Discharge Diagnosis (1) Pelvic pain: Code(s): R10.2 - Pelvic and perineal pain Status: Acute (2) Vaginal bleeding: Code(s): N93.9 - Abnormal uterine and vaginal bleeding, unspecified Status: Acute DS: Summary Hospital Course Reason for hospitalization: patient was admitted for robotic hysterectomy and bilateral salpingectomy on 02/07/2024. She underwent this robotically with extensive lysis of adhesions. Hospital Course: Patient's hospital course unremarkable. She remained afebrile. She was up, voiding without difficulty, eating regular diet, ambulating, generally without complaints. Time Spent with Patient Time attestation: Total time spent providing and/or coordinating discharge services: Exam Const: General: cooperative, healthy appearing and comfortable Orientation/consciousness: oriented to person, oriented to place and oriented to time Resp: Effort & Inspection: normal respiratory effort Cardio: Rate: regular rate Rhythm: regular rhythm Heart sounds: S1 normal heart sound present and S2 normal heart sound present GI: Inspection: normal to inspection and incision ( Wounds are clean dry and intact) DS: Data Data Completed and Pending Pending studies at discharge: Pending at discharge 02/07/24 13:59 Surgical [PTH] Routine Discharge Plan Discharge Patient Disposition: Home, Self-Care Stand Alone Forms: General Discharge Instructions Follow-up/Referrals: Ankit Wilburn MD [Physician] - Discharge Medications: New hydrocodone-acetaminophen 5-325 mg tablet 1 tablet PO Q4H PRN (Reason: pain) Qty: 30 0RF
[2024-02-07] MEDS: LACTATED RINGERS 1,000 ML 30 ML IV CONT (14:29)
[2024-02-07] MEDS: fentaNYL CITRATE INJ (*CRX) 100 MCG/2 ML VIAL 25 MCG IV PUSH ×6 (14:36→15:37)
[2024-02-07] MEDS: ONDANSETRON INJ 4 MG/2 ML VIAL IV PUSH (14:50)
--- NOTE | 2024-02-07 15:10 | SUR.PHASEI ---
1500 - family member updated by nidhi.
--- NOTE | 2024-02-07 15:48 | ADMGEN ---
This patient, Bindu Beal, was admitted to OB 2nd Floor Room 281-00. Patient/family oriented to hospital policies and general routines including ID bracelet, bed and alarms, visiting hours, pain management, procedures, bathroom and other care routines, personal items, smoking policy, room service/diet, and visiting hours. Information on how to activate the Rapid Response Team has been discussed. Patient/Family are encouraged to report perceived risks to care and to ask questions if they do not understand what they are told or what they should do.
[2024-02-07] MEDS: KETOROLAC 30 MG/ML VIAL (*BKC) IV PUSH (16:13)
[2024-02-07] MEDS: DEXTROSE 5%/LACTATED RINGERS 1,000 ML 125 ML IV CONT (16:14)
[2024-02-07] MEDS: DOCUSATE SODIUM 100 MG CAPSULE PO (17:54)
[2024-02-07] MEDS: SIMETHICONE 80 MG TAB.CHEW PO (17:54)
[2024-02-07] MEDS: HYDROcodone/acetaminophen (*CRX) 10-325 MG TABLET 1 TAB PO (17:54)
[2024-02-07] MEDS: IBUPROFEN 600 MG TABLET PO (20:36)
[2024-02-07] MEDS: HYDROcodone/acetaminophen (*CRX) 5-325 MG TABLET 1 TAB PO (20:37)
[2024-02-08] VITALS: BP 136/83; PULSE 104; RESP 18; TEMP 37.6; O2SAT 97
[2024-02-08] MEDS: HYDROcodone/acetaminophen (*CRX) 5-325 MG TABLET 1 TAB PO ×3 (00:14→10:29)
[2024-02-08] MEDS: IBUPROFEN 600 MG TABLET PO ×2 (04:46→10:29)
[2024-02-08 05:06] LABS: Basophils Percent Auto 0.1 % (0.2-1.2); Eosinophils Percent Auto 0.3 % (0-4.4); Hematocrit 32.1 % (37.0-47.0); Hemoglobin 9.7 g/dL (12.0-15.0); Immature Granulocyte Absolute 0.03 K/mm3 (0.00-0.031); Immature Granulocyte Percent A 0.4 % (0-0.5); Lymphocytes Absolute Auto 1.47 K/mm3 (0.9-3.2); Lymphocytes Percent Auto 21.1 % (18.3-44.2); Mean Corpuscular HGB Conc 30.2 g/dl (32-36); Mean Corpuscular Hemoglobin 23.5 pg (26-34); Mean Corpuscular Volume 77.7 fl (80-100); Mean Platelet Volume 10.5 fl (7.4-10.4); Monocytes Absolute Auto 0.6 K/mm3 (0.1-0.6); Monocytes Percent Auto 8.9 % (2.6-8.5); Neutrophils Absolute Auto 4.8 K/mm3 (1.3-6.7); Neutrophils Percent Auto 69.2 % (45.5-73.1); Platelet Count Result 221 k/mm3 (150-375); Red Blood Count 4.13 M/mm3 (4.2-5.4); Red Cell Distribution Width 16.7 % (11.5-14.5)
--- NOTE | 2024-02-08 05:53 | PM.GYNPNOP ---
LBD TEACHER - A/P Postoperative Procedures: Procedures Operation Date: 02/07/24 13:30 Actual Procedure Side Surgeon p Robotic Assisted Total Vaginal Hysterectomy with Bilateral Salpingectomy Bilateral Ankit Rios MD Postoperative day: 1 Postoperative status: doing well Postoperative plan: routine post-op care, see orders, ambulate, advance diet, voiding trials and discharge Time Spent With Patient Time: Total time spent is greater than 50% in coordination of care (as documented) at patient's floor/unit and/or counseling patient: Time with patient: less than 15 minutes LBD TEACHER- PN:Subj Post-Op Subjective Date/time seen: 02/08/24 05:53 Subjective: patient reports feeling better, patient has no complaints, patient desires discharge, pain is well controlled and patient is tolerating oral intake Exam Const: General: cooperative, healthy appearing and comfortable Nutritional Appearance: obese Orientation/consciousness: oriented to person, oriented to place and oriented to time Resp: Effort & Inspection: normal respiratory effort Cardio: Rate: regular rate Rhythm: regular rhythm Heart sounds: S1 normal heart sound present and S2 normal heart sound present GI: Inspection: normal to inspection and incision (cdi) LBD TEACHER - PN: Obj Data Vital Signs Vital Signs: Vital Signs - 24 hr 02/07/24 11:08 02/07/24 14:29 02/07/24 14:45 Temperature 97.8 F 97.8 F Pulse Rate 83 97 88 Respiratory Rate 12 21 H 22 H Blood Pressure 149/89 H 123/76 125/76 Pulse Oximetry 99 100 100 Oxygen Delivery Room Air Simple Face Mask Simple Face Mask Oxygen Flow Rate 6 6 02/07/24 15:00 02/07/24 15:15 02/07/24 15:28 Temperature Pulse Rate 91 94 93 Respiratory Rate 23 H 23 H 23 H Blood Pressure 134/68 133/74 146/72 H Pulse Oximetry 100 97 95 Oxygen Delivery Simple Face Mask Room Air Room Air Oxygen Flow Rate 6 02/07/24 15:50 02/07/24 15:50 02/07/24 20:00 Temperature 98.4 F 98.6 F Pulse Rate 98 68 Respiratory Rate 20 18 Blood Pressure 147/90 H 131/87 Pulse Oximetry 96 98 Oxygen Delivery Room Air Oxygen Flow Rate 02/07/24 20:00 02/08/24 00:00 Temperature 99.7 F H Pulse Rate 104 H Respiratory Rate 18 Blood Pressure 136/83 Pulse Oximetry 97 Oxygen Delivery Room Air Oxygen Flow Rate Intake/Output Intake/Output: Intake & Output 02/05/24 02/06/24 02/07/24 02/08/24 23:59 23:59 23:59 23:59 Intake Total 650 Output Total 575 430 Balance 75 -430 Meds/Results Medications: Active Medications Generic Name Dose Route Start Last Admin Trade Name Freq PRN Reason Stop Dose Admin Hydrocodone Bitart/Acetaminophen 1 tab 02/07/24 15:43 02/08/24 04:46 Hydrocodone/Acetaminophen (*Crx) 5-325 Mg Tablet PO 1 tab Q3H PRN Administration Pain Rated 5 or Less Hydrocodone Bitart/Acetaminophen 1 tab 02/07/24 15:43 02/07/24 17:54 Hydrocodone/Acetaminophen (*Crx) 10-325 Mg Tablet PO 1 tab Q3H PRN Administration Pain Rated 6 or Greater Docusate Sodium 100 mg 02/07/24 17:00 02/07/24 17:54 Docusate Sodium 100 Mg Capsule PO 100 mg BID TALITA Administration Enoxaparin Sodium 40 mg 02/08/24 09:00 Enoxaparin 40 Mg/0.4 Ml Syringe SUB-Q DAILY TALITA Dextrose/Lactated Ringer's 1,000 mls @ 125 mls/hr 02/07/24 15:43 02/07/24 16:14 Dextrose 5%/Lactated Ringers IV CONT 125 mls/hr .Q8H TALITA Administration Ibuprofen 600 mg 02/07/24 15:43 02/08/24 04:46 Ibuprofen 600 Mg Tablet PO 600 mg Q6H PRN Administration Cramping Ketorolac Tromethamine 30 mg 02/07/24 15:43 02/07/24 16:13 Ketorolac 30 Mg/Ml Vial (*Bkc) IV PUSH 02/12/24 15:42 30 mg Q6H PRN Administration Pain Rated 4-6 Morphine Sulfate 2 mg 02/07/24 17:32 Morphine Sulfate (*Crx) 2 Mg/Ml Inj IV PUSH ONCE PRN Breakthrough Pain Naloxone HCl 0.1 mg 02/07/24 15:43 Naloxone Hcl 0.4 Mg/Ml Vial IV PUSH Q2M PRN Respiratory rate less than 10 Ondanset
[2024-02-08 07:03] VITALS: BP 143/82; PULSE 93; RESP 18; TEMP 37.1; O2SAT 100
[2024-02-08] MEDS: SIMETHICONE 80 MG TAB.CHEW PO (09:01)
[2024-02-08] MEDS: ENOXAPARIN 40 MG/0.4 ML SYRINGE SUB-Q (09:01)
[2024-02-08] MEDS: DOCUSATE SODIUM 100 MG CAPSULE PO (09:01)
--- NOTE | 2024-02-08 10:46 | WPDANESPN ---
Anes - Prog Note Post-Op Date/Time: 02/08/24 10:46 Cardiovascular status: normal Respiratory status: normal Airway patency: baseline Mental status: baseline Post-Op hydration status: normal Vital Signs: Last Vital Signs Temp 37.1 C 02/08/24 07:03 Pulse 93 02/08/24 07:03 Resp 18 02/08/24 07:03 BP 143/82 H 02/08/24 07:03 Pulse Ox 100 02/08/24 07:03 O2 Del Method Room Air 02/08/24 07:03 O2 Flow Rate 6 02/07/24 15:00 Pain Score (VAS): 11/12 I/O: Intake & Output 02/07/24 02/08/24 02/08/24 23:59 07:59 15:59 Intake Total 250 Output Total 575 430 Balance -325 -430 Laboratory Tests 02/08/24 04:54 02/08/24 04:54 WBC 7.0 RBC 4.13 L Hgb 9.7 L Hct 32.1 L MCV 77.7 L MCH 23.5 L MCHC 30.2 L RDW 16.7 H Plt Count 221 MPV 10.5 H Immature Gran % (Auto) 0.4 Neut % (Auto) 69.2 Lymph % (Auto) 21.1 [place] % (Auto) 8.9 H Eos % (Auto) 0.3 Baso % (Auto) 0.1 L Lymph # (Auto) 1.47 [place] # (Auto) 0.6 Eos # (Auto) 0.0 Baso # (Auto) 0.0 Abs Immat Gran (auto) 0.03 Absolute Neuts (auto) 4.8 Absolute Nucleated RBC 0.000 Nucleated RBC % 0.0 Post-procedural complaints: none Patient Feedback: Patient satisfied with anesthetic care.
== END 2024-02-08 12:00 | disposition home or self-care (01) ==
LOC: ANHSURGERY 10:49 → ANHOB2 15:48
PROVIDERS: Visit Provider Obstetrics & Gynecology
PROC: (CPT 58552; principal; 2024-02-07 13:30)
DX: N81.4 Uterovaginal prolapse, unspecified (principal); R10.2 Pelvic and perineal pain; N93.9 Abnormal uterine and vaginal bleeding, unspecified; N73.6 Female pelvic peritoneal adhesions (postinfective); Z87.891 Personal history of nicotine dependence; E66.01 Morbid (severe) obesity due to excess calories; Z68.43 Body mass index [BMI] 50.0-59.9, adult
CPT/HCPCS: 58552; S2900; 36415; 85025; 88307; 99199; A9270; J0330; J0690; J1100; J1650; J1885; J2250; J2405; J2704; J3010; J7030; J7120; J7121